=== PATIENT | female | born 1930 | race Caucasian/White ===

== ENCOUNTER 2017-01-27 22:22 | Inpatient (IN) | payer OTHER, MEDICARE ==
[~2017-01-27] VITALS: Ht 154.9 cm; Wt 55.3 kg
[2017-01-27] MEDS ORDERED: SODIUM CHLORIDE 0.9% 1000ML 1,000 ML IV STA (22:32)
[2017-01-27] MEDS: FENTANYL CITRATE INJ 50 MCG/1 ML 2 ML VIAL IV PRN ×2 (22:38→23:16)
--- NOTE | 2017-01-27 22:38 | EMERGENCY ROOM VISIT NOTE ---
History Report prepared by Jayshree: Grant Schumacher Under the Supervision of: Dr. Benedicto Burgos D.O. First contact with patient: 22:01 Chief Complaint: FALL Stated Complaint: FALL History of Present Illness The patient is a 86 year old female who presents to the Emergency Room with complaints of a sudden fall occurring prior to arrival. The patient states that she was putting her dog outside, and she tripped on the dog. She is now complaining of right hip pain. The patient denies any loss of consciousness, abdominal pain, and trauma to the head. The patient states that she is not currently on any blood thinners. Source of History: patient Onset: prior to arrival Position: other (global) Quality: other (fall) Timing: other (sudden) Associated Symptoms: No abdominal pain Note: Associated symptoms: Right hip pain Review of Systems See HPI for pertinent positives & negatives. A total of 10 systems reviewed and were otherwise negative. Past Medical & Surgical Medical Problems: (1) Hip pain, right Social History Marital Status: Housing Status: lives with family Occupation Status: retired Current/Historical Medications Scheduled Acyclovir (Zovirax), 800 MG PO BID Dorzolamide Hcl-Timolol Maleat (Cosopt Oph), 1 DROPS OPL BID Eltrombopag Olamine (Promacta), 25 MG PO DAILY Fluconazole (Diflucan), 200 MG PO DAILY Fluorometholone (Ophth) (Fml Liquifilm), 2 DROPS OPB QAM Fluoxetine (Prozac), 40 MG PO QAM Levofloxacin (Levaquin), 750 MG PO DAILY Allergies Coded Allergies: BEE STING (Verified Allergy, Severe, ANAPHYLAXIS, 01/27/17) Physical Exam Vital Signs Date Time Temp Pulse Resp B/P (MAP) Pulse Ox O2 Delivery O2 Flow Rate FiO2 01/28/17 00:16 71 16 140/85 94 Room Air 01/27/17 23:44 68 16 155/89 94 Room Air 01/27/17 22:58 69 01/27/17 22:33 36.6 67 16 169/97 95 Room Air Physical Exam GENERAL: Patient is awake, alert, and very anxious and uncomfortable. Appears to be in significant pain. EYES: The conjunctivae are clear. The pupils are round and reactive. EARS, NOSE, MOUTH AND THROAT: The nose is without any evidence of any deformity. Mucous membranes are moist tongue is midline NECK: The neck is nontender and supple. RESPIRATORY: Normal respiratory effort is noted there is no evidence of wheezing rhonchi or rales CARDIOVASCULAR: Regular rate and rhythm noted there no murmurs rubs or gallops normal S1 normal S2 GASTROINTESTINAL: The abdomen is soft. Bowel sounds are present in all quadrants. Abdomen is nontender MUSCULOSKELETAL/EXTREMITIES: Right lower extremity was shortened with only minimal internal rotation noted. SKIN: Pedal edema bilaterally. There is no obvious evidence of any rash. There are no petechiae, pallor or cyanosis noted. NEUROLOGIC: Patient is awake alert and oriented x3 Medical Decision & Procedures ER Provider Diagnostic Interpretation: X-ray results as stated below per interpretation by me: Hip/Pelvis X-ray: Acute subcapital hip fracture on the right Chest X-ray: No acute disease. No definite infiltrate. No free air. Laboratory Results Test 01/27/17 22:56 01/27/17 23:11 Platelet Estimate DECREASED Prothrombin Time 10.0 SECONDS (9.0-12.0) Prothromb Time International Ratio 0.9 (0.9-1.1) Activated Partial Thromboplast Time 27.9 SECONDS (21.0-31.0) Partial Thromboplastin Ratio 1.1 Urine Color YELLOW Urine Appearance CLEAR (CLEAR) Urine pH 5.5 (4.5-7.5) Urine Specific [place] 1.019 (1.000-1.030) Urine Protein 1+ (NEG) Urine Glucose (UA) NEG (NEG) Urine Ketones TRACE (NEG) Urine Occult Blood NEG (NEG) Urine Nitrite NEG (NEG) Urine Bilirubin NEG (NEG) Urine Urobilinogen NEG (NEG) Urine Leukocyte Esterase NEG (NEG) Urine WBC (Auto) 1-5 /hpf (0-5) Urine RBC (Auto) 0-4 /hpf (0-4) Urine Hyaline Casts (Auto) 1-5 /lpf (0-5) Urine Epithelial Cells (Auto) 5-10 /lpf (0-5) Urine Bacteria (Auto) NEG (NEG) Laboratory results per my review. Medications Administered Medications (Trade) Dose Ordered Sig/Shantel Route Start Time Stop Time Status Last Admin Dose Admin Sodium Chloride 1,000 ml @ 125 mls/hr Q8H STAT IV 01/27/17 22:32 01/28/17 01:55 DC 01/27/17 23:47 125 MLS/HR Fentanyl Citrate (Fentanyl Inj) 50 mcg Q15M PRN IV 01/27/17 22:45 01/28/17 01:55 DC 01/27/17 23:16 50 MCG Hydromorphone HCl (Dilaudid Inj) 0.5 mg NOW STAT IV 01/27/17 23:55 01/27/17 23:56 DC 01/28/17 00:15 0.5 MG Dextrose/Sodium Chloride 1,000 ml @ 100 mls/hr Q10H IV 01/28/17 00:31 02/27/17 00:30 01/28/17 11:36 100 MLS/HR ECG Indication: other (fall ) Rate (beats per minute): 66 Rhythm: normal sinus Findings: Q waves (Inferior), no ectopy Comparison ECG Date: no prior available ED Course 2228: The patient was evaluated in room A2. A complete history and physical examination were performed. 2232: NSS 1,000 ml @ 125 mls/hr IV 2245: Fentanyl Inj 50mcg IV 2345: I discussed the patient's case with Dr. Royal. The patient will be evaluated for further management. 2355: Dilaudid Inj 0.5mg IV 0033: I discussed the patient's case with Dr. García, and he will evaluate the patient in the morning, and the patient should be NPO Medical Decision Differential diagnosis: Etiologies such as fracture, dislocation, neurovascular compromise, compartment syndrome, soft tissue injury, as well as others were entertained. Nursing notes reviewed. Additional history is obtained from the patient's daughter. The patient is an 86-year-old female who had a fall onto her right side. She suffered an isolated right hip fracture. The patient was treated with IV pain medication in the emergency department. She was reevaluated multiple times. The patient was feeling much better on subsequent reevaluation. I discussed the patient's laboratory and radiographic studies with her. I also discussed her case with the on-call [facility] hospitalist. They've agreed to evaluate the patient in the emergency department for further management and disposition. I also discussed his case with the on-call orthopedic physician and made him aware of the consult as well as the patient's fracture. Medication Reconcilliation Current Medication List: was personally reviewed by me Blood Pressure Screening Patient's blood pressure: Elevated blood pressure Blood pressure disposition: Elevated BP felt to be situational Consults Time Called: 2339 Consulting Physician: Dr. Royal Returned Call: 2344 I discussed the patient's case with Dr. Royal. The patient will be evaluated for further management. Additional Consults: Time Called: 19 Consulted Physician: Dr. García, Orthopedics Returned Call: 32 Additional Comments: I discussed the patient's case with Dr. García, and he will evaluate the patient in the morning, and the patient should be NPO Impression Primary Impression: Fall Additional Impression: Subcapital fracture of right hip Scribe Attestation The scribe's documentation has been prepared under my direction and personally reviewed by me in its entirety. I confirm that the note above accurately reflects all work, treatment, procedures, and medical decision making performed by me. Departure Information Dispostion Being Evaluated By Hospitalist Patient Instructions My [facility] Problem Qualifiers Primary Impression: Fall Encounter type: initial encounter Qualified Codes: W19.XXXA - Unspecified fall, initial encounter Additional Impression: Subcapital fracture of right hip Encounter type: initial encounter Fracture type: closed Qualified Codes: S72.011A - Unspecified intracapsular fracture of right femur, initial encounter for closed fracture
[2017-01-27] MEDS ORDERED: FLUO40CA8 PO (23:07)
[2017-01-27] MEDS ORDERED: LEVO1TAB35 PO (23:07)
[2017-01-27] MEDS ORDERED: DORZ1SOL6 OPL (23:07)
[2017-01-27] MEDS ORDERED: FLUO0.1S2 OPB (23:07)
[2017-01-27] MEDS ORDERED: ACYC-251 PO (23:07)
[2017-01-27] MEDS ORDERED: FLUC200T4 PO (23:07)
[2017-01-27] MEDS ORDERED: ELTR12.58 PO (23:07)
[2017-01-27 23:24] LABS: INR 0.9 (0.9-1.1); PARTIAL THROMBOPLASTIN RATIO 1.1
[2017-01-27 23:26] LABS: CALCIUM 8.3 mg/dl (8.5-10.1); CREATININE 0.94 mg/dl (0.60-1.20); POTASSIUM 4.6 mmol/L (3.5-5.1)
[2017-01-27 23:27] LABS: URINE APPEARANCE CLEAR (CLEAR); URINE BILIRUBIN NEG (NEG); URINE COLOR YELLOW; URINE NITRITE NEG (NEG); URINE PH 5.5 (4.5-7.5); URINE SPECIFIC GRAVITY 1.019 (1.000-1.030); UROBILINOGEN NEG (NEG); ZZURINE CULT IF INDIC CATH NO
[2017-01-27 23:34] LABS: MANUAL MICROSCOPIC REQUIRED? NO; REVIEW REQ? NO
[2017-01-27] MEDS ORDERED: HYDROmorphone INJ 0.5 MG/0.5 ML SYR IV STA (23:55)
[2017-01-27 23:56] LABS: BASO % 0.2 %; BASO ABS # 0.01 K/uL (0-0.2); COMPLETE YES; EOS % 2.4 %; HEMATOCRIT 35.2 % (37-47); IG% 0.8 %; LYMPH % 18.6 %; LYMPH ABS # 0.99 K/uL (1.2-3.4); MEAN CELL VOLUME 110.3 fL (80-100); MEAN CORPUSCULAR HEMOGLOBIN 37.6 pg (25-34); MEAN CORPUSCULAR HGB CONC 34.1 g/dl (32-36); MEAN PLATELET VOLUME 9.3 fL (7.4-10.4); MONO % 12.4 %; NEUT % 65.6 %; PLATELET COUNT 61 K/uL (130-400); PLT ESTIMATE DECREASED; RED BLOOD COUNT 3.19 M/uL (4.2-5.4); WHITE BLOOD COUNT 5.31 K/uL (4.8-10.8)
[2017-01-28] MEDS ORDERED: NALOXONE HCL 0.4 MG/1 ML VIAL/CARP IV PRN (00:45)
[2017-01-28] MEDS ORDERED: POLYETHYLENE (MIRALAX) 17 GM PACK PO PRN (00:45)
[2017-01-28] MEDS ORDERED: MAGNESIUM HYDROXIDE SUSP 30 ML UDC PO PRN (00:45)
[2017-01-28] MEDS ORDERED: SOD PHOSPHATE/SOD BIPHOSPHATE ENEMA 132 ML BTL PR PRN (00:45)
[2017-01-28] MEDS ORDERED: BISACODYL 10 MG SUPP PR PRN (00:45)
[2017-01-28] MEDS ORDERED: ACETAMINOPHEN 325 MG TAB PO PRN (00:45)
[2017-01-28] MEDS ORDERED: HYDROCODONE/ACETAMOPHEN 5/325MG TAB PO PRN (00:45)
[2017-01-28] MEDS ORDERED: ONDANSETRON INJ 2 MG/ML 2 ML VIAL IV PRN (00:45)
--- NOTE | 2017-01-28 00:47 | History and Physical ---
History & Physical Date & Time of Service: Jan 28, 2017 at 00:47 Chief Complaint: FALL Primary Care Physician: Corby Walter M.D. 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 Patient states she was chasing her dog off the porch while she tripped and fell on her right side. Denies any head trauma, LOC, dizziness, change in vision. Complains of right hip pain which is spasmodic, intermittent, 5/10 intensity, non radiating. Denies any fever, chills, chest pain, SOB, abd pain, dysuria but feels nauseous , weakness, numbness. Offers no other relevant history. 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 and chronic diarrhea Past Surgical History: Mastectomy Corneal Transplant Family History Reviewed, not relevant Social History Smoking Status: Never Smoker Alcohol Use: none Drug Use: none Allergies Coded Allergies: BEE STING (Verified Allergy, Severe, ANAPHYLAXIS, 01/27/17) Home Medications Scheduled Acyclovir (Zovirax), 800 MG PO BID Dorzolamide Hcl-Timolol Maleat (Cosopt Oph), 1 DROPS OPL BID Eltrombopag Olamine (Promacta), 25 MG PO DAILY Fluconazole (Diflucan), 200 MG PO DAILY Fluorometholone (Ophth) (Fml Liquifilm), 2 DROPS OPB QAM Fluoxetine (Prozac), 40 MG PO QAM Levofloxacin (Levaquin), 750 MG PO DAILY Review of Systems See HPI for pertinent positives & negatives. A total of 10 systems reviewed and were otherwise negative. Physical Exam Vital Signs Date Time Temp Pulse Resp B/P (MAP) Pulse Ox O2 Delivery O2 Flow Rate FiO2 01/28/17 00:16 71 16 140/85 94 Room Air 01/27/17 23:44 68 16 155/89 94 Room Air 01/27/17 22:58 69 01/27/17 22:33 36.6 67 16 169/97 95 Room Air General Appearance: + mild distress (secondary to pain), + thin Head: normocephalic, atraumatic Eyes: normal inspection, PERRL, EOMI, sclerae normal ENT: normal ENT inspection, hearing grossly normal Neck: supple, no JVD, trachea midline Respiratory/Chest: chest non-tender, lungs clear, normal breath sounds, no respiratory distress, no accessory muscle use Cardiovascular: regular rate, rhythm, no edema, no murmur Abdomen/GI: normal bowel sounds, non tender, soft Back: normal inspection Extremities/Musculoskelatal: normal inspection, no pedal edema Neurologic/Psych: communications writer II-XII nml as tested, no motor/sensory deficits, alert, normal mood/affect, oriented x 3 Skin: warm/dry, + pertinent finding (Chronic Echymotic changes on B/L Upper and lower extremities) Diagnostics Laboratory Results Results Past 24 Hours Test 01/27/17 22:56 01/27/17 23:11 Range/Units White Blood Count 5.31 4.8-10.8 K/uL Red Blood Count 3.19 4.2-5.4 M/uL Hemoglobin 12.0 12.0-16.0 g/dL Hematocrit 35.2 37-47 % Mean Corpuscular Volume 110.3 80-100 fL Mean Corpuscular Hemoglobin 37.6 25-34 pg Mean Corpuscular Hemoglobin Concent 34.1 32-36 g/dl Platelet Count 61 130-400 K/uL Mean Platelet Volume 9.3 7.4-10.4 fL Neutrophils (%) (Auto) 65.6 % Lymphocytes (%) (Auto) 18.6 % Monocytes (%) (Auto) 12.4 % Eosinophils (%) (Auto) 2.4 % Basophils (%) (Auto) 0.2 % Neutrophils # (Auto) 3.48 1.4-6.5 K/uL Lymphocytes # (Auto) 0.99 1.2-3.4 K/uL Monocytes # (Auto) 0.66 0.11-0.59 K/uL Eosinophils # (Auto) 0.13 0-0.5 K/uL Basophils # (Auto) 0.01 0-0.2 K/uL RDW Standard Deviation 53.6 36.4-46.3 fL RDW Coefficient of Variation 13.4 11.5-14.5 % Immature Granulocyte % (Auto) 0.8 % Immature Granulocyte # (Auto) 0.04 0.00-0.02 K/uL Platelet Estimate DECREASED Macrocytosis PRESENT Prothrombin Time 10.0 9.0-12.0 SECONDS Prothromb Time International Ratio 0.9 0.9-1.1 Activated Partial Thromboplast Time 27.9 21.0-31.0 SECONDS Partial Thromboplastin Ratio 1.1 Sodium Level 140 136-145 mmol/L Potassium Level 4.6 3.5-5.1 mmol/L Chloride Level 109 98-107 mmol/L Carbon Dioxide Level 23 21-32 mmol/L Anion Gap 8.0 3-11 mmol/L Blood Urea Nitrogen 14 7-18 mg/dl Creatinine 0.94 0.60-1.20 mg/dl Est Creatinine Clear Calc Drug Dose 33.6 ml/min Estimated GFR () 64.6 Estimated GFR (Non- 55.7 BUN/Creatinine Ratio 15.0 10-20 Random Glucose 123 70-99 mg/dl Calcium Level 8.3 8.5-10.1 mg/dl Urine Color YELLOW Urine Appearance CLEAR CLEAR Urine pH 5.5 4.5-7.5 Urine Specific [place] 1.019 1.000-1.030 Urine Protein 1+ NEG Urine Glucose (UA) NEG NEG Urine Ketones TRACE NEG Urine Occult Blood NEG NEG Urine Nitrite NEG NEG Urine Bilirubin NEG NEG Urine Urobilinogen NEG NEG Urine Leukocyte Esterase NEG NEG Urine WBC (Auto) 1-5 0-5 /hpf Urine RBC (Auto) 0-4 0-4 /hpf Urine Hyaline Casts (Auto) 1-5 0-5 /lpf Urine Epithelial Cells (Auto) 5-10 0-5 /lpf Urine Bacteria (Auto) NEG NEG Diagnostic Radiology Hip X ray: suggestive of Right hip fracture. Official read is pending CXR: No acute process Official read is pending EKG EKG: NSR, QTC:[id number] Impression Assessment and Plan Right Hip Fracture: S/P mechanical fall Pain control IV fluids NPO for now Orthopedics consulted SCDs for DVT prophylaxis given MDS, thrombocytopenia Discussed with patient/Daughter (POA) about risks of bleeding and clot formation Myelodysplastic Syndrome: Chronic Thrombocytopenia: Follows with in [facility] having blood transfusion reactions previously (Needs premedicated in case of need for transfusions) States no issues with platelet transfusions Type and Cross Continue Promacta, Chronic suppressive therapy meds:Acyclovir, Levaquin, Diflucan Currently no bleeding issues CKD III: Cr at baseline monitor Glaucoma: H/O Corneal transplant Continue home meds H/O Breast cancer S/P mastectomy, Stable HTN: Stable Currently not on any meds at home DVT Px: SCDs: Re: MDS, thrombocytopenia Code Status: Full Code. Discussed with patient/POA:daughter VTE Prophylaxis VTE Risk Assessment Done? Y/N: Yes Risk Level: Moderate
[2017-01-28 01:40] VITALS: BP 172/81; PULSE 71; TEMP 36.9; O2SAT 97
[2017-01-28 02:09] VITALS: Ht 154.9 cm; Wt 55.3 kg
[2017-01-28] MEDS: D5W AND NSS 1,000 ML IV SCH ×3 (02:12→20:55)
[2017-01-28] MEDS ORDERED: CEFAZOLIN 2000 MG/60 ML D5W 60 ML IV SCH (06:00)
[2017-01-28] MEDS: HYDROmorphone INJ 0.5 MG/0.5 ML SYR IV PRN ×5 (07:08→21:43)
--- NOTE | 2017-01-28 07:15 | DIAGNOSTIC IMAGING REPORT ---
SINGLE VIEW CHEST CLINICAL HISTORY: Fall. Hip fracture. FINDINGS: An AP, portable, supine chest radiograph is obtained. No prior studies are available for comparison at the time of dictation. The examination is degraded by portable technique and patient rotation. The heart is enlarged and there is atherosclerotic calcification of the thoracic aorta. The pulmonary vasculature is noncongested. Nonspecific interstitial thickening is identified. No airspace consolidation, large pleural effusion, or pneumothorax is seen. The skeletal structures are osteopenic. The bony thorax is grossly intact. IMPRESSION: Cardiomegaly with no acute cardiopulmonary abnormality. Electronically signed by: Benjamín Pitt M.D. 01/28/2017 7:14 AM Dictated Date/Time: 01/28/2017 7:13 AM
--- NOTE | 2017-01-28 07:21 | DIAGNOSTIC IMAGING REPORT ---
R PELVIS/UNILATERAL HIP 2-3VIEWS CLINICAL HISTORY: fall COMPARISON STUDY: None. FINDINGS: There is a right femoral neck fracture demonstrate mild superior displacement. The femoral head remains within the acetabulum. The visualized pelvic bones are intact. No fracture or dislocation within the left hip. The bones are osteopenic. IMPRESSION: Mildly displaced right femoral neck fracture. Electronically signed by: Khanh Emmanuel M.D. 01/28/2017 7:20 AM Dictated Date/Time: 01/28/2017 7:19 AM
[2017-01-28 07:26] LABS: MEAN CELL VOLUME 112.2 fL (80-100); MEAN CORPUSCULAR HEMOGLOBIN 37.6 pg (25-34); MEAN CORPUSCULAR HGB CONC 33.5 g/dl (32-36); RED BLOOD COUNT 3.03 M/uL (4.2-5.4)
[2017-01-28 07:29] LABS: MEAN PLATELET VOLUME 9.1 fL (7.4-10.4); PLATELET COUNT 58 K/uL (130-400)
[2017-01-28 07:35] VITALS: BP 123/81; PULSE 74; TEMP 37.1; O2SAT 97
[2017-01-28] MEDS ORDERED: PNEUMOCOCCAL ADMINISTRATION CHARGE ONE (08:00)
[2017-01-28] MEDS ORDERED: PNEUMOCOCCAL POLYSACCHARIDES 25 MCG/0.5 ML VIAL/SYR IM. ONE (08:00)
[2017-01-28] MEDS ORDERED: INFLUENZA VACCINE HIGH DOSE 65+ 0.5 ML SYR IM. ONE (08:00)
[2017-01-28] MEDS ORDERED: INFLUENZA ADMINISTRATION CHARGE ONE (08:00)
[2017-01-28 08:02] LABS: BUN/CREATININE RATIO 18.3 (10-20); CREATININE 0.81 mg/dl (0.60-1.20); POTASSIUM 4.4 mmol/L (3.5-5.1)
[2017-01-28 08:11] LABS: COMPLETE YES; EOS % 0.6 %; IG% 0.2 %; LYMPH % 15.9 %; LYMPH ABS # 0.78 K/uL (1.2-3.4); MONO % 14.7 %; NEUT % 68.6 %; TEAR DROP CELLS 1+
--- NOTE | 2017-01-28 08:11 | CONSULTATION REPORT ---
DATE OF CONSULTATION: 01/28/2017 REASON FOR CONSULT: Right hip fracture. HISTORY OF PRESENT ILLNESS: The patient is an 86-year-old white female who states that she was attending to her 2 dogs on her front porch. She was trying to get the one dog go down off the porch into the yard whenever she got caught up in the dog's leash and ended up causing her to lose her balance and fall. She fell onto her right side and had immediate hip pain, groin pain and was unable to ambulate. She was brought to [facility] where she was seen by the staff. X-rays were taken in the Emergency Room and it was found that she had a displaced right femoral neck fracture. She was admitted by the medical service. We have been asked to see her for this fracture. The patient states that she lives alone and ambulates throughout the household regularly and does her own yard work still. She does on occasion go out with some of her friends; however, she states that she does not do this often and because if she does walk long distances, she gets too tired. She denies any hip pain in the right hip prior to the fall. PAST MEDICAL AND SURGICAL HISTORY: Myelodysplastic syndrome, chronic thrombocytopenia, CKD stage III, glaucoma, history of breast carcinoma with status post mastectomy, hypertension, history of pyoderma gangrenosum secondary to infected breast implant, chronic diarrhea, and history of corneal transplants.. FAMILY HISTORY: Noncontributory. SOCIAL HISTORY: The patient is nonsmoker, does not drink alcohol and lives by herself. MEDICATIONS: Acyclovir 800 mg p.o. b.i.d., Cosopt ophthalmic 1 drop OPL b.i.d., Promacta 25 mg p.o. daily, Diflucan 200 mg p.o. daily, fluorometholone 2 drops OPB q.a.m., Prozac 40 mg p.o. q.a.m. and Levaquin 750 mg p.o. daily. ALLERGIES: BEE STINGS. REVIEW OF SYSTEMS: As per admitting history and physical. PHYSICAL EXAMINATION: GENERAL: The patient is an 86-year-old white female who appears her stated age. She is awake and alert and oriented to person and place. She is in no distress, pleasant and cooperative. EXTREMITIES: On examination of her right lower extremity, it is shortened and externally rotated compared to the left. No attempts were made to move the right hip due to fracture. Her right knee is nontender and she has no pain in the right ankle or toes. She has good range of motion of her right ankle and toes at this time. Knee range of motion is limited due to hip fracture pain. Left lower extremity essentially benign at this time and has good range of motion of the left hip, knee and ankle. Upper extremities are unaffected and she has good range of motion of the left and right upper extremity. She is nontender at the shoulders, elbows and wrists and has good sensation. Ice Guard Tester strength is equal. She denies neck pain on palpation and has good range of motion of her neck and currently is denying any thoracic or low back pain. There are no gross motor or sensory deficits at this time other than hip due to her right hip fracture with her range of motion. ASSESSMENT: Displaced right femoral neck fracture. PLAN: The patient will likely need either bipolar hemiarthroplasty or total hip arthroplasty as designated per [facility] physician. We will discuss the case with medicine service, making sure she is cleared for surgery, but otherwise we will try and get her hip taken care of today. (Hematology consult pending. Discussed case with Blood Bank. They have 2 units of platelets in house but the expiration date is for late today. Hoping to have more units available soon.) CORNELIUS
[2017-01-28] MEDS: FLUOXETINE HCL 20 MG CAP PO SCH ×2 (09:00→09:12)
[2017-01-28] MEDS: LEVOFLOXACIN 750 MG TAB PO SCH ×2 (09:00→09:12)
[2017-01-28] MEDS: ACYCLOVIR 400 MG TAB PO SCH ×3 (09:12→20:56)
[2017-01-28] MEDS: FLUCONAZOLE 100 MG TAB PO SCH ×2 (09:12→11:30)
[2017-01-28] MEDS: DORZOLAMIDE/TIMOLOL 22.3/6.8MG/ML 10 ML BTL OPL SCH ×2 (09:15→20:55)
[2017-01-28 15:00] VITALS: BP 136/84; PULSE 73; TEMP 36.8; O2SAT 92
[2017-01-28 16:00] VITALS: O2SAT 94
--- NOTE | 2017-01-28 16:14 | DIAGNOSTIC IMAGING REPORT ---
R FEMUR 2 VIEWS ROUTINE CLINICAL HISTORY: Fall. Hip fracture. Preoperative planning. COMPARISON: Pelvis and right hip radiographs December 28, 2016. FINDINGS: There is an acute moderately displaced right femoral neck fracture. Fracture displacement has increased since exam of January 27, 2017. No additional right femoral fractures are present. There is no right knee joint effusion. No proximal right tibia or fibular fracture is identified. IMPRESSION: 1. Acute moderately displaced right femoral neck fracture. Fracture displacement has increased since exam of January 27, 2017. 2. No additional right femoral fractures. Electronically signed by: Kentrell Schuler M.D. 01/28/2017 4:13 PM Dictated Date/Time: 01/28/2017 4:10 PM
--- NOTE | 2017-01-28 18:01 | Progress Note ---
Medicine Progress Note Date & Time of Visit: Jan 28, 2017 at 18:01. Subjective Patient has no complaints other than being hungry and having occasional pain in her hip; overall she is ok, joking and hoping for the best. No overnight events noted. Has family at the bedside. Objective Last 8 Hrs Date Time Temp Pulse Resp B/P (MAP) Pulse Ox O2 Delivery O2 Flow Rate FiO2 01/28/17 15:38 Nasal Cannula 2.0 01/28/17 15:00 36.8 73 16 136/84 (101) 92 Nasal Cannula 2.0 Physical Exam: GENERAL: Patient is in no acute distress. HEENT: No acute trauma, normocephalic atraumatic, mucous membranes moist, no nasal congestion, no scleral icterus. NECK: No stridor, trachea is midline. LUNGS: Clear to auscultation bilaterally, no wheeze, no rhonchi, breath sounds equal. HEART: Without murmurs gallops or rubs, regular rate and rhythm. ABDOMEN: Soft, nontender, bowel sounds positive EXTREMITIES: No cyanosis or edema; bilateral UE with purplish discoloration, per patient is unchanged NEUROLOGIC: Oriented x 3, no acute motor or sensory deficits, no focal weakness. SKIN: No rash, no jaundice, no diaphoresis. Laboratory Results: Last 24 Hours Test 01/27/17 22:56 01/27/17 23:11 01/28/17 06:48 White Blood Count 5.31 K/uL 4.90 K/uL Red Blood Count 3.19 M/uL 3.03 M/uL Hemoglobin 12.0 g/dL 11.4 g/dL Hematocrit 35.2 % 34.0 % Mean Corpuscular Volume 110.3 fL 112.2 fL Mean Corpuscular Hemoglobin 37.6 pg 37.6 pg Mean Corpuscular Hemoglobin Concent 34.1 g/dl 33.5 g/dl Platelet Count 61 K/uL 58 K/uL Mean Platelet Volume 9.3 fL 9.1 fL Neutrophils (%) (Auto) 65.6 % 68.6 % Lymphocytes (%) (Auto) 18.6 % 15.9 % Monocytes (%) (Auto) 12.4 % 14.7 % Eosinophils (%) (Auto) 2.4 % 0.6 % Basophils (%) (Auto) 0.2 % 0.0 % Neutrophils # (Auto) 3.48 K/uL 3.36 K/uL Lymphocytes # (Auto) 0.99 K/uL 0.78 K/uL Monocytes # (Auto) 0.66 K/uL 0.72 K/uL Eosinophils # (Auto) 0.13 K/uL 0.03 K/uL Basophils # (Auto) 0.01 K/uL 0.00 K/uL RDW Standard Deviation 53.6 fL 55.0 fL RDW Coefficient of Variation 13.4 % 13.6 % Immature Granulocyte % (Auto) 0.8 % 0.2 % Immature Granulocyte # (Auto) 0.04 K/uL 0.01 K/uL Platelet Estimate DECREASED Macrocytosis PRESENT PRESENT Prothrombin Time 10.0 SECONDS Prothromb Time International Ratio 0.9 Activated Partial Thromboplast Time 27.9 SECONDS Partial Thromboplastin Ratio 1.1 Sodium Level 140 mmol/L 140 mmol/L Potassium Level 4.6 mmol/L 4.4 mmol/L Chloride Level 109 mmol/L 110 mmol/L Carbon Dioxide Level 23 mmol/L 22 mmol/L Anion Gap 8.0 mmol/L 8.0 mmol/L Blood Urea Nitrogen 14 mg/dl 15 mg/dl Creatinine 0.94 mg/dl 0.81 mg/dl Est Creatinine Clear Calc Drug Dose 33.6 ml/min 39.0 ml/min Estimated GFR () 64.6 77.3 Estimated GFR (Non- 55.7 66.7 BUN/Creatinine Ratio 15.0 18.3 Random Glucose 123 mg/dl 131 mg/dl Calcium Level 8.3 mg/dl 8.0 mg/dl Urine Color YELLOW Urine Appearance CLEAR Urine pH 5.5 Urine Specific [place] 1.019 Urine Protein 1+ Urine Glucose (UA) NEG Urine Ketones TRACE Urine Occult Blood NEG Urine Nitrite NEG Urine Bilirubin NEG Urine Urobilinogen NEG Urine Leukocyte Esterase NEG Urine WBC (Auto) 1-5 /hpf Urine RBC (Auto) 0-4 /hpf Urine Hyaline Casts (Auto) 1-5 /lpf Urine Epithelial Cells (Auto) 5-10 /lpf Urine Bacteria (Auto) NEG Tear Drop Cells 1+ Chemistry Specimen Hemolysis Date/Time Source Procedure Growth Status 01/28/17 01:40 Nasal MRSA DNA Surveillance Screen - Final Specimen Negative for MRSA by DNA Probe Complete Assessment & Plan RIGHT HIP FRACTURE: -following a mechanical fall -pain control -IV fluids -NPO after midnight -Orthopedics consulted, appreciate recs, planning for surgery tomorrow afternoon -SCDs for DVT prophylaxis given MDS, thrombocytopenia -prior attending spoke with patient/Daughter (POA) about risks of bleeding and clot formation -patient can proceed to surgery as planned with no additional workup; will transfuse platelets on day of surgery MYELODYSPLASTIC SYNDROME: -with Chronic Thrombocytopenia: platelets had been relatively stable in 50,000 range per patients Hem/Onc -follows with in [place] -has a history of blood transfusion reactions previously (Needs premedicated in case of need for transfusions) -no issues with platelet transfusions previously -Type and Cross completed -continue Promacta, Chronic suppressive therapy meds:Acyclovir, Levaquin, Diflucan -no bleeding currently -Hem/Onc consulted: advise 1 unit platelets transfused in the AM on day of surgery and recheck; please see consultation for DVT prophylaxis recommendations ; appreciate all the input from Hem/Onc CKD STAGE III: -Cr at baseline -monitor GLAUCOMA: -prior Corneal transplants -continue home meds Hx of BREAST CANCER: -S/P mastectomy -Stable HTN: Stable Currently not on any meds at home Current Inpatient Medications: Current Inpatient Medications Medications (Trade) Dose Ordered Sig/Shantel Route Start Time Stop Time Status Last Admin Dose Admin Dextrose/Sodium Chloride 1,000 ml @ 100 mls/hr Q10H IV 01/28/17 00:31 02/27/17 00:30 01/28/17 11:36 100 MLS/HR Ondansetron HCl (Zofran Inj) 4 mg Q6H PRN IV 01/28/17 00:45 02/27/17 00:44 Acetaminophen (Tylenol Tab) 650 mg Q6H PRN PO 01/28/17 00:45 02/27/17 00:44 Naloxone HCl (Narcan Inj) 0.1 mg PRN PRN IV 01/28/17 00:45 02/27/17 00:44 Senna/Docusate Sodium (Senokot S Tab) 2 tab HS PO 01/28/17 21:00 02/27/17 20:59 Polyethylene (Miralax Powder Packet) 17 gm DAILY PRN PO 01/28/17 00:45 02/27/17 00:44 Magnesium Hydroxide (Milk Of Magnesia Susp) 30 ml DAILY PRN PO 01/28/17 00:45 02/27/17 00:44 Bisacodyl (Dulcolax Supp) 10 mg DAILY PRN [place] 01/28/17 00:45 02/27/17 00:44 Sodium Biphosphate/ Sodium Phosphate (Fleet Enema) 132 ml PRN PRN [place] 01/28/17 00:45 Cefazolin Sodium 60 ml @ 120 mls/hr PREOP IV 01/28/17 06:00 01/29/17 05:59 Acyclovir (Zovirax Tab) 800 mg BID PO 01/28/17 09:00 02/27/17 08:59 01/28/17 11:30 800 MG Dorzolamide/ Timolol (Cosopt Op Soln) 1 drops BID OPL 01/28/17 09:00 02/27/17 08:59 01/28/17 09:15 1 DROPS Fluconazole (Diflucan Tab) 200 mg DAILY PO 01/28/17 09:00 02/27/17 08:59 01/28/17 11:30 200 MG Fluoxetine HCl (Prozac Cap) 40 mg QAM PO 01/28/17 09:00 02/27/17 08:59 01/28/17 09:00 40 MG Levofloxacin (Levaquin Tab) 750 mg DAILY PO 01/28/17 09:00 02/27/17 08:59 01/28/17 09:00 750 MG Acetaminophen/ Hydrocodone Bitart ([place] 5/325 Tab) 1 tab Q6H PRN PO 01/28/17 00:45 02/11/17 00:44 01/28/17 10:12 1 TAB Non-Formulary Medication (Non-Formulary Patient'S Own Med) 1 ea DAILY PO 01/29/17 09:00 02/28/17 08:59 Hydromorphone HCl (Dilaudid Inj) 0.5 mg Q3HWA PRN IV 01/28/17 17:45 02/11/17 00:44
--- NOTE | 2017-01-28 18:45 | Anesthesiology Progress Note ---
Anesthesia Progress Note Date of Service Jan 28, 2017. Progress Notes Ms. Giraldo is scheduled for bipolar hip, right tomorrow with Dr. Arthur. NKDA. PSH significant for mastectomy and corneal transplant. 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 PMH significant for HTN and myelodysplastic syndrome with chronic thrombocytopenia (platelets have been as low as 2 before). Currently platelet count is 58. Heme has seen patient and awaiting their full note although patient stated she is to receive platelet transfusion tomorrow prior to OR. PMH also significant for CKD. She is a never smoker and airway exam unremarkable. Consented for general anesthesia given her significant thrombocytopenia. All questions answered.
--- NOTE | 2017-01-28 18:51 | Medical Consult ---
Consultation Date of Consultation: Jan 28, 2017. Attending Physician: Eugenie Subramanian D.O. Reason for Consultation: MDS History of Present Illness 86 year old female with history of MDS, high IPSS, followed by Dr Servin at [facility]. She was treated with vidaza in the past and aranesp and supportive transfusions. Her current treatment is with promacta and her platelet counts have been stable in the low 60s She is admitted with a displaced right femoral fracture. She states that she was attending to her dogs and her leg got caught in the leash of one of her dogs and she lost her balance and fell. She has bruises on her forearms which she states are old. She has bruises on er right thigh and hip area She states that pain is controlled adequately at this time. 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 chronic diarrhea PSH: mastectomy, corneal transplant Medical Problems: (1) Fall Status: Acute (2) Subcapital fracture of right hip Status: Acute Family History noncontributory Social History Smoking Status: Never Smoker Alcohol Use: none Drug Use: none Housing Status: lives alone (but states that her daughter and son live in close proximity) Occupation Status: retired Allergies Coded Allergies: BEE STING (Verified Allergy, Severe, ANAPHYLAXIS, 01/27/17) Home Medications Reviewed Acyclovir, promacta 25mg, diflucan 200mg levaquin prozac, fluorometholone opth dorzolomide-timolol opth Current Inpatient Medications Current Inpatient Medications Medications (Trade) Dose Ordered Sig/Shantel Route Start Time Stop Time Status Last Admin Dose Admin Dextrose/Sodium Chloride 1,000 ml @ 100 mls/hr Q10H IV 01/28/17 00:31 02/27/17 00:30 01/28/17 11:36 100 MLS/HR Ondansetron HCl (Zofran Inj) 4 mg Q6H PRN IV 01/28/17 00:45 02/27/17 00:44 Acetaminophen (Tylenol Tab) 650 mg Q6H PRN PO 01/28/17 00:45 02/27/17 00:44 Naloxone HCl (Narcan Inj) 0.1 mg PRN PRN IV 01/28/17 00:45 02/27/17 00:44 Senna/Docusate Sodium (Senokot S Tab) 2 tab HS PO 01/28/17 21:00 02/27/17 20:59 Polyethylene (Miralax Powder Packet) 17 gm DAILY PRN PO 01/28/17 00:45 02/27/17 00:44 Magnesium Hydroxide (Milk Of Magnesia Susp) 30 ml DAILY PRN PO 01/28/17 00:45 02/27/17 00:44 Bisacodyl (Dulcolax Supp) 10 mg DAILY PRN [place] 01/28/17 00:45 02/27/17 00:44 Sodium Biphosphate/ Sodium Phosphate (Fleet Enema) 132 ml PRN PRN [place] 01/28/17 00:45 Cefazolin Sodium 60 ml @ 120 mls/hr PREOP IV 01/28/17 06:00 01/29/17 05:59 Acyclovir (Zovirax Tab) 800 mg BID PO 01/28/17 09:00 02/27/17 08:59 01/28/17 11:30 800 MG Dorzolamide/ Timolol (Cosopt Op Soln) 1 drops BID OPL 01/28/17 09:00 02/27/17 08:59 01/28/17 09:15 1 DROPS Fluconazole (Diflucan Tab) 200 mg DAILY PO 01/28/17 09:00 02/27/17 08:59 01/28/17 11:30 200 MG Fluoxetine HCl (Prozac Cap) 40 mg QAM PO 01/28/17 09:00 02/27/17 08:59 01/28/17 09:00 40 MG Levofloxacin (Levaquin Tab) 750 mg DAILY PO 01/28/17 09:00 02/27/17 08:59 01/28/17 09:00 750 MG Acetaminophen/ Hydrocodone Bitart ([place] 5/325 Tab) 1 tab Q6H PRN PO 01/28/17 00:45 02/11/17 00:44 10/12/17 10:12 1 TAB Non-Formulary Medication (Non-Formulary Patient'S Own Med) 1 ea DAILY PO 01/29/17 09:00 02/28/17 08:59 Hydromorphone HCl (Dilaudid Inj) 0.5 mg Q3HWA PRN IV 01/28/17 17:45 02/11/17 00:44 Review of Systems Constitutional: No fever, No chills, No sweats, No weight loss, No weakness, No fatigue ENT: No unusual epistaxis, No nasal symptoms, No sore throat Respiratory: No cough, No sputum, No wheezing, No shortness of breath, No dyspnea on exertion, No hemoptysis Cardiovascular: No chest pain, No palpitations Abdomen: + diarrhea (chronic), No pain, No nausea, No vomiting, No GI bleeding Musculoskeletal: + joint pain (right hip fracuture), + problem reported Genitourinary - Female: No dysuria, No urinary frequency, No hematuria Neurologic: No weakness, No numbness/tingling, No vertigo Endocrine: + fatigue (mild) Hematologic / Lymphatic: No swollen lymph nodes, No night sweats Integumentary: + problem reported (bruising), No rash, No itch Physical Exam Date Time Temp Pulse Resp B/P (MAP) Pulse Ox O2 Delivery O2 Flow Rate FiO2 01/28/17 15:38 Nasal Cannula 2.0 01/28/17 15:00 36.8 73 16 136/84 (101) 92 Nasal Cannula 2.0 01/28/17 07:35 37.1 74 16 123/81 (95) 97 Nasal Cannula 1.0 01/28/17 07:08 Room Air 01/28/17 02:15 Nasal Cannula 01/28/17 02:09 Nasal Cannula 1.0 01/28/17 01:40 36.9 71 18 172/81 (111) 97 Nasal Cannula 1.0 01/28/17 01:18 69 16 149/85 100 01/28/17 00:46 68 16 126/81 99 Nasal Cannula 2.0 01/28/17 00:16 71 16 140/85 94 Room Air 01/27/17 23:44 68 16 155/89 94 Room Air 01/27/17 22:58 69 01/27/17 22:33 36.6 67 16 169/97 95 Room Air General Appearance: WD/WN, no apparent distress Head: normocephalic, atraumatic Eyes: sclerae normal ENT: pharynx normal Neck: supple, no adenopathy, no JVD Respiratory/Chest: chest non-tender, lungs clear, normal breath sounds, no respiratory distress, no accessory muscle use Cardiovascular: regular rate, rhythm, no murmur Abdomen/GI: normal bowel sounds, non tender, soft, + pertinent finding ( nondistended) Extremities/Musculoskelatal: + pertinent finding (+SCDs, +ecchymoses on right thigh and posterior hip) Neurologic/Psych: alert, normal mood/affect, oriented x 3 Skin: warm/dry Laboratory Results Last 24 Hours Test 01/27/17 22:56 01/27/17 23:11 01/28/17 06:48 White Blood Count 5.31 K/uL 4.90 K/uL Red Blood Count 3.19 M/uL 3.03 M/uL Hemoglobin 12.0 g/dL 11.4 g/dL Hematocrit 35.2 % 34.0 % Mean Corpuscular Volume 110.3 fL 112.2 fL Mean Corpuscular Hemoglobin 37.6 pg 37.6 pg Mean Corpuscular Hemoglobin Concent 34.1 g/dl 33.5 g/dl Platelet Count 61 K/uL 58 K/uL Mean Platelet Volume 9.3 fL 9.1 fL Neutrophils (%) (Auto) 65.6 % 68.6 % Lymphocytes (%) (Auto) 18.6 % 15.9 % Monocytes (%) (Auto) 12.4 % 14.7 % Eosinophils (%) (Auto) 2.4 % 0.6 % Basophils (%) (Auto) 0.2 % 0.0 % Neutrophils # (Auto) 3.48 K/uL 3.36 K/uL Lymphocytes # (Auto) 0.99 K/uL 0.78 K/uL Monocytes # (Auto) 0.66 K/uL 0.72 K/uL Eosinophils # (Auto) 0.13 K/uL 0.03 K/uL Basophils # (Auto) 0.01 K/uL 0.00 K/uL RDW Standard Deviation 53.6 fL 55.0 fL RDW Coefficient of Variation 13.4 % 13.6 % Immature Granulocyte % (Auto) 0.8 % 0.2 % Immature Granulocyte # (Auto) 0.04 K/uL 0.01 K/uL Platelet Estimate DECREASED Macrocytosis PRESENT PRESENT Prothrombin Time 10.0 SECONDS Prothromb Time International Ratio 0.9 Activated Partial Thromboplast Time 27.9 SECONDS Partial Thromboplastin Ratio 1.1 Sodium Level 140 mmol/L 140 mmol/L Potassium Level 4.6 mmol/L 4.4 mmol/L Chloride Level 109 mmol/L 110 mmol/L Carbon Dioxide Level 23 mmol/L 22 mmol/L Anion Gap 8.0 mmol/L 8.0 mmol/L Blood Urea Nitrogen 14 mg/dl 15 mg/dl Creatinine 0.94 mg/dl 0.81 mg/dl Est Creatinine Clear Calc Drug Dose 33.6 ml/min 39.0 ml/min Estimated GFR () 64.6 77.3 Estimated GFR (Non- 55.7 66.7 BUN/Creatinine Ratio 15.0 18.3 Random Glucose 123 mg/dl 131 mg/dl Calcium Level 8.3 mg/dl 8.0 mg/dl Urine Color YELLOW Urine Appearance CLEAR Urine pH 5.5 Urine Specific [place] 1.019 Urine Protein 1+ Urine Glucose (UA) NEG Urine Ketones TRACE Urine Occult Blood NEG Urine Nitrite NEG Urine Bilirubin NEG Urine Urobilinogen NEG Urine Leukocyte Esterase NEG Urine WBC (Auto) 1-5 /hpf Urine RBC (Auto) 0-4 /hpf Urine Hyaline Casts (Auto) 1-5 /lpf Urine Epithelial Cells (Auto) 5-10 /lpf Urine Bacteria (Auto) NEG Tear Drop Cells 1+ Chemistry Specimen Hemolysis Xray pelvis : IMPRESSION: Mildly displaced right femoral neck fracture. CXR: IMPRESSION: Cardiomegaly with no acute cardiopulmonary abnormality Femur xray IMPRESSION: 1. Acute moderately displaced right femoral neck fracture. Fracture displacement has increased since exam of January 27, 2017. 2. No additional right femoral fractures. Assessment & Plan 86 year old female with MDS, chronic thrombocytopenia currently on Promacta admitted with displaced right femoral neck fracture Platelet count 58,000. continue promacta Recommend transfuse her 1 unit of platelets prior to her surgery and recheck the platelet count. If platelet count still not adequate from surgery standpoint she can be transfused a second unit of platelet. Transfuse PRBC and platelets as clinically indicated if bleeding. Monitor CBC post-surgery and when adequate hemostasis has been achieved and safe from surgeon standpoint, she can be started on prophylactic dose lovenox 40mg once daily if her platelet count is stable over 50,000. Monitor for any bleeding. I discussed risk of bleeding and thromboembolism with the patient. I spoke to her nickel plater Dr Servin about the patient and recommendations are as above and he agreed with the above. I also spoke to Dr Subramanian Thank you for allowing us to participate in the care of this patient Call if questions
[2017-01-28] MEDS: DOCUSATE SODIUM/SENNA 50/8.6MG TAB PO SCH (20:56)
[2017-01-28 21:37] VITALS: O2SAT 95
[2017-01-28 23:30] VITALS: BP 112/72; PULSE 71; TEMP 37.3; O2SAT 97
[2017-01-29] VITALS (14 sets, daily range): BP systolic 97–148; BP diastolic 58–80; PULSE 66–82; TEMP 36.4–37; O2SAT 91–98
[2017-01-29] MEDS: HYDROmorphone INJ 0.5 MG/0.5 ML SYR IV PRN ×3 (02:36→09:34)
[2017-01-29] MEDS: D5W AND NSS 1,000 ML IV SCH (05:55)
[2017-01-29] MEDS ORDERED: CEFAZOLIN 2000 MG/60 ML D5W IV SCH (06:00)
[2017-01-29 07:15] LABS: HEMATOCRIT 29.9 % (37-47); MEAN CELL VOLUME 112.8 fL (80-100); MEAN CORPUSCULAR HEMOGLOBIN 38.1 pg (25-34); MEAN CORPUSCULAR HGB CONC 33.8 g/dl (32-36); RED BLOOD COUNT 2.65 M/uL (4.2-5.4); WHITE BLOOD COUNT 5.36 K/uL (4.8-10.8)
[2017-01-29] MEDS ORDERED: BUPIVACAINE 0.5 % 5 MG/1 ML PF 10ML VIAL ONE (07:15)
[2017-01-29 07:22] LABS: MEAN PLATELET VOLUME 8.7 fL (7.4-10.4); PLATELET COUNT 44 K/uL (130-400)
[2017-01-29 07:39] LABS: BASO % 0.2 %; BASO ABS # 0.01 K/uL (0-0.2); COMPLETE YES; EOS % 1.1 %; IG% 0.4 %; LYMPH % 16.4 %; LYMPH ABS # 0.88 K/uL (1.2-3.4); MONO % 12.5 %; NEUT % 69.4 %
[2017-01-29 07:40] LABS: BUN/CREATININE RATIO 16.7 (10-20); CALCIUM 7.9 mg/dl (8.5-10.1); CREATININE 0.72 mg/dl (0.60-1.20)
[2017-01-29] MEDS ORDERED: DiphenhydrAMINE INJ 25 MG in SYRINGE 0 ML IV ONE (08:00)
[2017-01-29] MEDS ORDERED: DiphenhydrAMINE HCL 50 MG/ML VIAL IV SCH ×2 (08:30→20:30)
[2017-01-29] MEDS ORDERED: ACETAMINOPHEN IV 650 MG in EMPTY BAG 0 ML IV SCH (08:30)
[2017-01-29] MEDS ORDERED: PROMACTA 25 MG PO SCH (09:00)
[2017-01-29] MEDS ORDERED: NURSING VERBAL MED ORDER ONE (09:15)
[2017-01-29] MEDS: FLUOROMETHOLONE OPH OP SCH (09:26)
[2017-01-29] MEDS: DORZOLAMIDE/TIMOLOL 22.3/6.8MG/ML 10 ML BTL OPL SCH ×2 (09:26→21:29)
[2017-01-29] MEDS: FLUCONAZOLE 100 MG TAB PO SCH (09:28)
[2017-01-29] MEDS: ACYCLOVIR 400 MG TAB PO SCH ×2 (09:29→21:29)
[2017-01-29] MEDS: FLUOXETINE HCL 20 MG CAP PO SCH (09:29)
[2017-01-29] MEDS: LEVOFLOXACIN 750 MG TAB PO SCH (09:29)
[2017-01-29] MEDS ORDERED: METHYLPREDNISOLONE IV 40 MG in SYRINGE 0 ML IV ONE (12:30)
[2017-01-29] MEDS ORDERED: PANTOprazole INJ 40 MG in SYRINGE 0 ML IV ONE (12:30)
[2017-01-29 12:32] LABS: HEMATOCRIT 28.6 % (37-47); MEAN CELL VOLUME 111.3 fL (80-100); MEAN CORPUSCULAR HEMOGLOBIN 38.9 pg (25-34); RED BLOOD COUNT 2.57 M/uL (4.2-5.4); WHITE BLOOD COUNT 5.84 K/uL (4.8-10.8)
[2017-01-29 12:37] LABS: MEAN PLATELET VOLUME 8.9 fL (7.4-10.4); PLATELET COUNT 65 K/uL (130-400)
[2017-01-29] MEDS ORDERED: MIDAZOLAM HCL 1 MG/ML 2ML VIAL ONE (12:43)
[2017-01-29] MEDS ORDERED: PROPOFOL IV EMULSION 10 MG/ML 20 ML VIAL IV ONE (12:44)
[2017-01-29] MEDS ORDERED: LIDOCAINE HCL 2% 2 ML VIAL (20MG/ML) ONE (12:44)
[2017-01-29] MEDS ORDERED: FENTANYL CITRATE INJ 50 MCG/1 ML 2 ML VIAL ONE (12:44)
[2017-01-29] MEDS ORDERED: ONDANSETRON INJ 2 MG/ML 2 ML VIAL ONE ×2 (12:45→14:52)
[2017-01-29 12:59] LABS: BASO % 0.2 %; BASO ABS # 0.01 K/uL (0-0.2); COMPLETE YES; EOS % 0.9 %; IG% 0.5 %; LYMPH % 13.9 %; LYMPH ABS # 0.81 K/uL (1.2-3.4); MONO % 12.3 %; NEUT % 72.2 %; TOXIC GRANULATION 1+
[2017-01-29 13:10] LABS: CKMB/CK RATIO 2.1 (0-3.0)
--- NOTE | 2017-01-29 13:28 | Progress Note ---
Medicine Progress Note Date & Time of Visit: Jan 29, 2017 at 13:13. Subjective Patient was seen earlier this AM, was doing ok other than having pain in her hip with even minimal movement. She feels the pain medication is adequate. She denies any other symptoms at this time. No overnight events noted. Was able to eat last evening until midnight. No other complaints at this time. Consent was obtained for platelet transfusion Was paged later in the morning that the patient began to have chest pain and pressure that began right after the platelets were transfused. Her symptoms persisted for 30 mins and slowly resolved. No SOB or palpitations. No prior history of such symptoms. Vitals remained stable. Family at the bedside and updated. EKG performed, reviewed, shows normal sinus rhythm with no ST or T wave abnormalities. Labs to check cardiac enzymes and CBC ordered. Objective Last 8 Hrs Date Time Temp Pulse Resp B/P (MAP) Pulse Ox O2 Delivery O2 Flow Rate FiO2 01/29/17 12:32 37.0 72 14 148/75 (99) 98 Nasal Cannula 2.0 01/29/17 11:55 36.4 72 125/75 97 2.0 01/29/17 11:51 36.4 74 16 125/75 96 2.0 01/29/17 11:20 36.9 72 12 104/66 96 2.0 01/29/17 10:49 36.6 72 14 101/63 98 2.0 01/29/17 10:35 36.4 73 12 104/66 95 2.0 01/29/17 10:17 36.9 78 20 129/80 01/29/17 07:25 36.8 78 16 146/79 (101) 92 Nasal Cannula 2.0 01/29/17 07:25 Nasal Cannula 2.0 Physical Exam: GENERAL: Patient is in no acute distress. HEENT: No acute trauma, normocephalic atraumatic, mucous membranes moist, no nasal congestion, no scleral icterus. NECK: No stridor, trachea is midline. LUNGS: Clear to auscultation bilaterally, no wheeze, no rhonchi, breath sounds equal. HEART: Without murmurs gallops or rubs, regular rate and rhythm. ABDOMEN: Soft, nontender, bowel sounds positive EXTREMITIES: No cyanosis or edema; bilateral UE with blue-purplish discoloration , per patient is unchanged from her usual NEUROLOGIC: Oriented x 3, no acute motor or sensory deficits, no focal weakness. SKIN: No rash, no jaundice, no diaphoresis. Exam unchanged when repeated at 11:08 AM Laboratory Results: Last 24 Hours Test 01/29/17 06:40 01/29/17 12:18 01/29/17 13:05 White Blood Count 5.36 K/uL 5.84 K/uL Red Blood Count 2.65 M/uL 2.57 M/uL Hemoglobin 10.1 g/dL 10.0 g/dL Hematocrit 29.9 % 28.6 % Mean Corpuscular Volume 112.8 fL 111.3 fL Mean Corpuscular Hemoglobin 38.1 pg 38.9 pg Mean Corpuscular Hemoglobin Concent 33.8 g/dl 35.0 g/dl Platelet Count 44 K/uL 65 K/uL Mean Platelet Volume 8.7 fL 8.9 fL Neutrophils (%) (Auto) 69.4 % 72.2 % Lymphocytes (%) (Auto) 16.4 % 13.9 % Monocytes (%) (Auto) 12.5 % 12.3 % Eosinophils (%) (Auto) 1.1 % 0.9 % Basophils (%) (Auto) 0.2 % 0.2 % Neutrophils # (Auto) 3.72 K/uL 4.22 K/uL Lymphocytes # (Auto) 0.88 K/uL 0.81 K/uL Monocytes # (Auto) 0.67 K/uL 0.72 K/uL Eosinophils # (Auto) 0.06 K/uL 0.05 K/uL Basophils # (Auto) 0.01 K/uL 0.01 K/uL RDW Standard Deviation 55.7 fL 53.4 fL RDW Coefficient of Variation 13.6 % 13.2 % Immature Granulocyte % (Auto) 0.4 % 0.5 % Immature Granulocyte # (Auto) 0.02 K/uL 0.03 K/uL Macrocytosis PRESENT PRESENT Sodium Level 136 mmol/L Potassium Level 4.0 mmol/L Chloride Level 108 mmol/L Carbon Dioxide Level 23 mmol/L Anion Gap 5.0 mmol/L Blood Urea Nitrogen 12 mg/dl Creatinine 0.72 mg/dl Est Creatinine Clear Calc Drug Dose 43.9 ml/min Estimated GFR () 89.1 Estimated GFR (Non- 76.9 BUN/Creatinine Ratio 16.7 Random Glucose 116 mg/dl Calcium Level 7.9 mg/dl Toxic Granulation 1+ Total Creatine Kinase 146 U/L Creatine Kinase MB 3.1 ng/ml Creatine Kinase MB Ratio 2.1 Troponin I < 0.015 ng/ml Assessment & Plan RIGHT HIP FRACTURE: -following a mechanical fall -pain control -IV fluids -NPO since midnight -Orthopedics consulted, appreciate recs, planning for surgery this afternoon -SCDs for DVT prophylaxis given MDS, thrombocytopenia -prior attending spoke with patient/Daughter (POA) about risks of bleeding and clot formation -patient can proceed to surgery as planned with no additional workup; was transfused platelets (2 units) this AM CHEST PAIN: -no EKG changes, no elevation of cardiac markers -unlikely cardiac -discussed with Anesthesia, if EKG and labs normal will proceed with Surgery as planned -possibly related to the transfusion of platelets; was pre-treated with acetaminophen and benadryl, but will give solu-medrol IV now -will also give PPI -symptoms resolving without intervention, and vital signs remain stable -no associated symptoms MYELODYSPLASTIC SYNDROME: -with Chronic Thrombocytopenia: platelets had been relatively stable in 50,000 range per patients Hem/Onc -follows with in [place] -has a history of blood transfusion reactions previously (Needs premedicated in case of need for transfusions) -no issues with platelet transfusions previously, today patient reports has had reaction even with platelets on 2 occasions -continue Promacta, Chronic suppressive therapy meds: Acyclovir, Levaquin, Diflucan -no bleeding currently -Hem/Onc consulted: advise 2 unit platelets transfused in the AM today because platelet counts dropped to 44,000 today; will recheck tonight after surgery and transfuse again if needed. Please see consultation for DVT prophylaxis recommendations; appreciate all the input from Hem/Onc CKD STAGE III: -Cr at baseline -monitor GLAUCOMA: -prior Corneal transplants -continue home meds Hx of BREAST CANCER: -S/P mastectomy -Stable HTN: -stable -not on any meds at home, will monitor for now Current Inpatient Medications: Current Inpatient Medications Medications (Trade) Dose Ordered Sig/Shantel Route Start Time Stop Time Status Last Admin Dose Admin Dextrose/Sodium Chloride 1,000 ml @ 100 mls/hr Q10H IV 01/28/17 00:31 02/27/17 00:30 01/29/17 05:55 100 MLS/HR Ondansetron HCl (Zofran Inj) 4 mg Q6H PRN IV 01/28/17 00:45 02/27/17 00:44 Acetaminophen (Tylenol Tab) 650 mg Q6H PRN PO 01/28/17 00:45 02/27/17 00:44 Naloxone HCl (Narcan Inj) 0.1 mg PRN PRN IV 01/28/17 00:45 02/27/17 00:44 Senna/Docusate Sodium (Senokot S Tab) 2 tab HS PO 01/28/17 21:00 02/27/17 20:59 01/28/17 20:56 2 TAB Polyethylene (Miralax Powder Packet) 17 gm DAILY PRN PO 01/28/17 00:45 02/27/17 00:44 Magnesium Hydroxide (Milk Of Magnesia Susp) 30 ml DAILY PRN PO 01/28/17 00:45 02/27/17 00:44 Bisacodyl (Dulcolax Supp) 10 mg DAILY PRN [place] 01/28/17 00:45 02/27/17 00:44 Sodium Biphosphate/ Sodium Phosphate (Fleet Enema) 132 ml PRN PRN [place] 01/28/17 00:45 Acyclovir (Zovirax Tab) 800 mg BID PO 01/28/17 09:00 02/27/17 08:59 01/29/17 09:29 800 MG Dorzolamide/ Timolol (Cosopt Op Soln) 1 drops BID OPL 01/28/17 09:00 02/27/17 08:59 01/29/17 09:26 1 DROPS Fluconazole (Diflucan Tab) 200 mg DAILY PO 01/28/17 09:00 02/27/17 08:59 01/29/17 09:28 200 MG Fluoxetine HCl (Prozac Cap) 40 mg QAM PO 01/28/17 09:00 02/27/17 08:59 01/29/17 09:29 40 MG Levofloxacin (Levaquin Tab) 750 mg DAILY PO 01/28/17 09:00 02/27/17 08:59 01/29/17 09:29 750 MG Acetaminophen/ Hydrocodone Bitart ([place] 5/325 Tab) 1 tab Q6H PRN PO 01/28/17 00:45 02/11/17 00:44 01/28/17 10:12 1 TAB Non-Formulary Medication (Non-Formulary Patient'S Own Med) 1 ea DAILY PO 01/29/17 09:00 02/28/17 08:59 01/29/17 09:29 1 EA Hydromorphone HCl (Dilaudid Inj) 0.5 mg Q3HWA PRN IV 01/28/17 17:45 02/11/17 00:44 01/29/17 09:34 0.5 MG Acetaminophen 650 mg/Empty Bag 65 ml @ 260 mls/hr TODAY@0830 IV 01/29/17 08:30 01/29/17 20:00 01/29/17 09:55 260 MLS/HR Diphenhydramine HCl (Benadryl Inj) 25 mg TODAY@0830 IV 01/29/17 08:30 01/29/17 18:00 01/29/17 09:52 25 MG
[2017-01-29] MEDS ORDERED: BACITRACIN 50000 UNIT VIAL ONE (14:11)
--- NOTE | 2017-01-29 14:17 | History & Physical Bridge Note ---
H&P Re-Evaluation Bridge Note: I have examined the patient, reviewed the History & Physical and in the interval since the performance of the History & Physical I have noted the following changes of clinical significance: No changes noted
--- NOTE | 2017-01-29 14:22 | Orthopedic Progress Note ---
Orthopedic Progress Note Date of Service Jan 29, 2017. Subjective Additional Notes: Patient seen at bedside accompanied by family. Pain well controlled. Received platelet transfusion. Medically cleared to proceed with surgery. Objective NAD, AOX3 RLE NVSI +EHL/FHL/TA/GS SILT grossly, CR< 2 seconds, skin intact over right hip , +ecchymosis Compartments soft NT. Bilateral LE venous status Date Time Temp Pulse Resp B/P (MAP) Pulse Ox O2 Delivery O2 Flow Rate FiO2 01/29/17 12:32 37.0 72 14 148/75 (99) 98 Nasal Cannula 2.0 01/29/17 11:55 36.4 72 125/75 97 2.0 01/29/17 11:51 36.4 74 16 125/75 96 2.0 01/29/17 11:20 36.9 72 12 104/66 96 2.0 01/29/17 10:49 36.6 72 14 101/63 98 2.0 01/29/17 10:35 36.4 73 12 104/66 95 2.0 01/29/17 10:17 36.9 78 20 129/80 01/29/17 07:25 36.8 78 16 146/79 (101) 92 Nasal Cannula 2.0 01/29/17 07:25 Nasal Cannula 2.0 01/28/17 23:30 37.3 71 18 112/72 (85) 97 Room Air 2.0 01/28/17 22:45 Nasal Cannula 2.0 01/28/17 21:37 95 Nasal Cannula 2.0 01/28/17 16:00 94 Nasal Cannula 2.0 01/28/17 15:38 Nasal Cannula 2.0 01/28/17 15:00 36.8 73 16 136/84 (101) 92 Nasal Cannula 2.0 Laboratory Results 24 Hours: Test 01/29/17 06:40 01/29/17 12:18 White Blood Count 5.36 K/uL 5.84 K/uL Red Blood Count 2.65 M/uL 2.57 M/uL Hemoglobin 10.1 g/dL 10.0 g/dL Hematocrit 29.9 % 28.6 % Mean Corpuscular Volume 112.8 fL 111.3 fL Mean Corpuscular Hemoglobin 38.1 pg 38.9 pg Mean Corpuscular Hemoglobin Concent 33.8 g/dl 35.0 g/dl Platelet Count 44 K/uL 65 K/uL Mean Platelet Volume 8.7 fL 8.9 fL Neutrophils (%) (Auto) 69.4 % 72.2 % Lymphocytes (%) (Auto) 16.4 % 13.9 % Monocytes (%) (Auto) 12.5 % 12.3 % Eosinophils (%) (Auto) 1.1 % 0.9 % Basophils (%) (Auto) 0.2 % 0.2 % Neutrophils # (Auto) 3.72 K/uL 4.22 K/uL Lymphocytes # (Auto) 0.88 K/uL 0.81 K/uL Monocytes # (Auto) 0.67 K/uL 0.72 K/uL Eosinophils # (Auto) 0.06 K/uL 0.05 K/uL Basophils # (Auto) 0.01 K/uL 0.01 K/uL Assessment & Plan Assessment: 86 yo Female with displaced right hip femoral neck fracture -I explained the patients diagnosis with her and family and treatment options including hip hemiarthroplasty and non surgical options. I expressed the risk and benefits of surgery in detail. Risks include but not limited to infection, bleeding, blood clots, damage to surround bone, vessels, nerves, soft tissue, need for additional surgery and . The family decided collectively to proceed with surgery and informed consent was obtained. -NPO -IV fluids -NWB RLE -Christine -Jessicaef on hold to OR -Pain controlled -Heme consult appreciated
[2017-01-29] MEDS ORDERED: LABETALOL HCL IV 5 MG/ML 20ML IV PRN (14:30)
[2017-01-29] MEDS ORDERED: ATROPINE SULFATE 0.1 MG/ML 5ML SYR IV PRN (14:30)
[2017-01-29] MEDS ORDERED: MEPERIDINE HCL 25 MG/ML CARP IV PRN (14:30)
[2017-01-29] MEDS ORDERED: HYDROmorphone INJ 1 MG/ML SYR IV PRN (14:30)
[2017-01-29] MEDS ORDERED: ONDANSETRON INJ 2 MG/ML 2 ML VIAL IV PRN ×2 (14:30→17:15)
[2017-01-29] MEDS ORDERED: ROPIVACAINE 5MG/ML 30 ML 150 MG, BUPIVACAINE/EPINEPHR 0.5% MPF 30 ML, KETOROLAC TROMETH... INFIL SCH ×7 (14:30)
[2017-01-29] MEDS ORDERED: FENTANYL CITRATE INJ 50 MCG/1 ML 2 ML VIAL IV PRN (14:30)
[2017-01-29] MEDS ORDERED: EpHEDrine SULFATE INJ 50 MG/ML AMP IV PRN (14:30)
[2017-01-29] MEDS ORDERED: ORTHO JOINT ANESTHETIC ONE (14:49)
[2017-01-29] MEDS ORDERED: ROCURONIUM BROMIDE 10 MG/ML 5 ML VIAL IV ONE (14:51)
[2017-01-29] MEDS ORDERED: CEFAZOLIN SOD 1 GM VIAL ONE (14:51)
[2017-01-29] MEDS ORDERED: DEXAMETHASONE SOD INJ 4 MG/ML VIAL ONE (14:52)
[2017-01-29] MEDS ORDERED: NEOSTIGMINE METHYLSULFATE 5 MG/5 ML SYR ONE (15:40)
[2017-01-29] MEDS ORDERED: GLYCOPYRROLATE INJ 0.2 MG/ML VIAL ONE (15:40)
[2017-01-29] MEDS ORDERED: MoRPHine SULFATE 4 MG/ML 1 ML CARP\\VIAL IV PRN (17:15)
[2017-01-29] MEDS ORDERED: MoRPHine SULFATE 2 MG/ML CARP IV PRN (17:15)
[2017-01-29] MEDS ORDERED: NALOXONE HCL 0.4 MG/1 ML VIAL/CARP IV PRN (17:15)
[2017-01-29] MEDS ORDERED: COUGH DROP (SUGAR FREE) LOZ 24 LOZ/1 BOX PO PRN (17:15)
[2017-01-29] MEDS ORDERED: ACETAMINOPHEN 325 MG TAB PO PRN (17:15)
--- NOTE | 2017-01-29 17:35 | [facility] Operative Report ---
Operative Report Operative Date Jan 29, 2017. Pre-Operative Diagnosis Displaced right hip femoral neck fracture Post-Operative Diagnosis same Procedure(s) Performed Right Bipolar Hip - cemented Surgeon Dr Arthur Machine Deburrer Surgeon(s) Christoph Lopez PA-C Estimated Blood Loss 300ml Findings see dictated op note Specimens a. right femoral head Drains none Anesthesia General Complication(s) None Disposition Recovery Room / PACU Indications 86 yo Female with displaced right femoral neck fracture sustained after tripping on her dog on the evening of 01/27/17. The patient was medically stabilized on 01/28/17 and is followed by hematology. The risks and benefits of surgery were explained to patient and family which included but not limited to infection, bleeding, blood clots, damage to nerves, vessels, bone and soft tissue, need for additional surgery and . The patients family collectively chose to moved forward with surgical intervention and informed consent was obtained. Description of Procedure Following induction of adequate anesthesia, the patient was transfered to the OR table and placed in the lateral decubitus position with left hip down. The right hip was prepped and draped in usual sterile manner. A posterior incision was made. Subcutaneous tissue was sharply dissected. Electrocautery was used for hemostasis. Fascia was incised throughout the length of the wound and the piriformis was identified. The short external rotators were divided from the posterior aspect of the femur. Capsule was opened as well and attention was turned to the femoral neck where soft tissue was cleared from the femoral neck. The fracture was relatively high on the calcar and decision was made to proceed with the oscillating saw and create the calcar osteotomy. This bone fragment was removed. Following this, corkscrew was utilized to remove the femoral head. This was measured on the back table and the 47 femoral head was chosen as the size to be used. Attention was turned to the acetabulum which was found to have no significant arthritis. All bony debris was removed. A sponge was placed in the acetabulum. Attention was then turned to the proximal femur where box osteotome was used to gain access to the femoral canal. A canal finder and power lateralizing reamer were utilized to further open. Sequential raspings were taken up to a size 12, which was sunk completely and trial reduction was carried out and a +0 x 28 mm femoral head was chosen the size to be used with the 47 bipolar cup. Following a trial reduction the calcar reamer was utilized to smooth the calcar and the instruments were removed. The hip was thoroughly irrigated with pulsatile irrigation. The canal was irrigated and dried, cement restrictor was placed and cement was mixed. The 12 low demand fracture stem was placed with a 11 mm centralizer and this was held in position well. All excess cement was removed and cement hardened. Following this, another trial reduction was carried out and again a +0 neck size was chosen as the size to be used. The head and neck were impacted into position and the hip was reduced and was found to be stable to 45 degrees of internal rotation and 90 degrees of flexion. The wound was again irrigated. The joint mix was injected throughout the hip and the capsule was repaired using 5 fiberwire sutures through drill holes. Following this, the short external rotators were reapproximated to the posterior aspect of the femur also through drill holes and these were tied. Once again the wound was copously irrigated with sterile saline solution. Fascia was closed using #1 Vicryl [id number] sutures, subcutaneous tissue was closed using 2-0 vicryl, and skin was closed with pola. A sterile silverlon dressing was applied. The patient was taken to recovery room in stable and good condition. She tolerated the procedure well. I attest to the content of the Intraoperative Record and any orders documented therein. Any exceptions are noted below.
--- NOTE | 2017-01-29 17:47 | Anesthesiology Progress Note ---
Anesthesia Post Op Note Date & Time Jan 29, 2017 at 17:47 Vital Signs Pain Intensity: 0 Vital Signs Past 12 Hours Date Time Temp Pulse Resp B/P (MAP) Pulse Ox O2 Delivery O2 Flow Rate FiO2 01/29/17 17:30 68 12 105/65 93 Nasal Cannula 2 01/29/17 17:20 67 12 107/63 99 Oxymask 10 01/29/17 17:10 68 15 123/64 99 Oxymask 10 01/29/17 17:03 37.0 80 16 144/81 98 Oxymask 10 01/29/17 12:32 37.0 72 14 148/75 (99) 98 Nasal Cannula 2.0 01/29/17 11:55 36.4 72 125/75 97 2.0 01/29/17 11:51 36.4 74 16 125/75 96 2.0 01/29/17 11:20 36.9 72 12 104/66 96 2.0 01/29/17 10:49 36.6 72 14 101/63 98 2.0 01/29/17 10:35 36.4 73 12 104/66 95 2.0 01/29/17 10:17 36.9 78 20 129/80 01/29/17 07:25 36.8 78 16 146/79 (101) 92 Nasal Cannula 2.0 01/29/17 07:25 Nasal Cannula 2.0 Notes Mental Status: alert / awake / arousable, participated in evaluation Pt Amnestic to Procedure: Yes Nausea / Vomiting: adequately controlled Pain: adequately controlled Airway Patency, RR, SpO2: stable & adequate BP & HR: stable & adequate Hydration State: stable & adequate Anesthetic Complications: no major complications apparent
--- NOTE | 2017-01-29 17:47 | Orthopedic Progress Note ---
Orthopedic Progress Note Date of Service Jan 29, 2017. Subjective Additional Notes: Post-op check Patient seen in PACU, comfortable, pain well controlled, no acute issues. Objective NAD, AOx3 RLE NVSI +EHL/FHL/TA/GS SILT grossly, CR< 2 seconds +2 DP Pulse, compartments soft NT, Dressing CDI Date Time Temp Pulse Resp B/P (MAP) Pulse Ox O2 Delivery O2 Flow Rate FiO2 01/29/17 17:10 68 15 123/64 99 Oxymask 10 01/29/17 17:03 37.0 80 16 144/81 98 Oxymask 10 01/29/17 12:32 37.0 72 14 148/75 (99) 98 Nasal Cannula 2.0 01/29/17 11:55 36.4 72 125/75 97 2.0 01/29/17 11:51 36.4 74 16 125/75 96 2.0 01/29/17 11:20 36.9 72 12 104/66 96 2.0 01/29/17 10:49 36.6 72 14 101/63 98 2.0 01/29/17 10:35 36.4 73 12 104/66 95 2.0 01/29/17 10:17 36.9 78 20 129/80 01/29/17 07:25 36.8 78 16 146/79 (101) 92 Nasal Cannula 2.0 01/29/17 07:25 Nasal Cannula 2.0 01/28/17 23:30 37.3 71 18 112/72 (85) 97 Room Air 2.0 01/28/17 22:45 Nasal Cannula 2.0 01/28/17 21:37 95 Nasal Cannula 2.0 Laboratory Results 24 Hours: Test 01/29/17 06:40 01/29/17 12:18 White Blood Count 5.36 K/uL 5.84 K/uL Red Blood Count 2.65 M/uL 2.57 M/uL Hemoglobin 10.1 g/dL 10.0 g/dL Hematocrit 29.9 % 28.6 % Mean Corpuscular Volume 112.8 fL 111.3 fL Mean Corpuscular Hemoglobin 38.1 pg 38.9 pg Mean Corpuscular Hemoglobin Concent 33.8 g/dl 35.0 g/dl Platelet Count 44 K/uL 65 K/uL Mean Platelet Volume 8.7 fL 8.9 fL Neutrophils (%) (Auto) 69.4 % 72.2 % Lymphocytes (%) (Auto) 16.4 % 13.9 % Monocytes (%) (Auto) 12.5 % 12.3 % Eosinophils (%) (Auto) 1.1 % 0.9 % Basophils (%) (Auto) 0.2 % 0.2 % Neutrophils # (Auto) 3.72 K/uL 4.22 K/uL Lymphocytes # (Auto) 0.88 K/uL 0.81 K/uL Monocytes # (Auto) 0.67 K/uL 0.72 K/uL Eosinophils # (Auto) 0.06 K/uL 0.05 K/uL Basophils # (Auto) 0.01 K/uL 0.01 K/uL Assessment & Plan Assessment: s/p R Hip Hemiarthroplasty POD 0 -Ancef x 24 -Post op DVT PPX as per Heme - Lovenox 40mg Daily -Post op CBC, has platelets on hold -AM labs -Post OP XR Right hip - Well align hip prosthesis without fracture/dislocation -Pain controlled -Posterior Hip Precautions -PT/OT -WBAT RLE
--- NOTE | 2017-01-29 17:52 | Anesthesiology Progress Note ---
Anesthesia Post Op Note Date & Time Jan 29, 2017 at 17:52 Vital Signs Pain Intensity: 0 Vital Signs Past 12 Hours Date Time Temp Pulse Resp B/P (MAP) Pulse Ox O2 Delivery O2 Flow Rate FiO2 01/29/17 17:40 37.3 70 13 103/58 93 Nasal Cannula 2 01/29/17 17:30 68 12 105/65 93 Nasal Cannula 2 01/29/17 17:20 67 12 107/63 99 Oxymask 10 01/29/17 17:10 68 15 123/64 99 Oxymask 10 01/29/17 17:03 37.0 80 16 144/81 98 Oxymask 10 01/29/17 12:32 37.0 72 14 148/75 (99) 98 Nasal Cannula 2.0 01/29/17 11:55 36.4 72 125/75 97 2.0 01/29/17 11:51 36.4 74 16 125/75 96 2.0 01/29/17 11:20 36.9 72 12 104/66 96 2.0 01/29/17 10:49 36.6 72 14 101/63 98 2.0 01/29/17 10:35 36.4 73 12 104/66 95 2.0 01/29/17 10:17 36.9 78 20 129/80 01/29/17 07:25 36.8 78 16 146/79 (101) 92 Nasal Cannula 2.0 01/29/17 07:25 Nasal Cannula 2.0 Notes Mental Status: alert / awake / arousable, participated in evaluation Pt Amnestic to Procedure: Yes Nausea / Vomiting: adequately controlled Pain: adequately controlled Airway Patency, RR, SpO2: stable & adequate BP & HR: stable & adequate Hydration State: stable & adequate Anesthetic Complications: no major complications apparent
--- NOTE | 2017-01-29 17:54 | DIAGNOSTIC IMAGING REPORT ---
RIGHT HIP 2 VIEWS CLINICAL HISTORY: Postoperative examination. FINDINGS: AP and crosstable lateral portable views of the right hip are obtained. A right hip arthroplasty is in near-anatomic alignment. No acute fracture is seen. There are expected postoperative findings overlying the right hip including skin clips, subcutaneous gas, and soft tissue swelling. IMPRESSION: Expected postoperative findings status post right hip arthroplasty. No acute fracture is seen. Electronically signed by: Benjamín Pitt M.D. 01/29/2017 5:53 PM Dictated Date/Time: 01/29/2017 5:52 PM
[2017-01-29] MEDS: SODIUM CHLORIDE 0.9% 1000ML 1,000 ML IV SCH (18:28)
[2017-01-29 19:41] LABS: HEMATOCRIT 20.4 % (37-47); MEAN CELL VOLUME 112.7 fL (80-100); MEAN CORPUSCULAR HEMOGLOBIN 39.2 pg (25-34); MEAN CORPUSCULAR HGB CONC 34.8 g/dl (32-36); MEAN PLATELET VOLUME 8.3 fL (7.4-10.4); PLATELET COUNT 41 K/uL (130-400); RED BLOOD COUNT 1.81 M/uL (4.2-5.4); WHITE BLOOD COUNT 4.15 K/uL (4.8-10.8)
[2017-01-29] MEDS ORDERED: ACETAMINOPHEN 325 MG TAB PO SCH (20:30)
[2017-01-29] MEDS ORDERED: DOCUSATE SODIUM/SENNA 50/8.6MG TAB PO SCH (21:00)
[2017-01-29] MEDS: DOCUSATE SODIUM/SENNA 50/8.6MG TAB PO SCH (21:29)
[2017-01-29] MEDS: CEFAZOLIN IV 2,000 MG in DEXTROSE 5% 50ML 50 ML IV SCH (21:33)
[2017-01-29] MEDS ORDERED: NURSING DECISION MEDICATION ORDER SCH (22:30)
[2017-01-30] VITALS (8 sets, daily range): BP systolic 98–117; BP diastolic 61–69; PULSE 75–89; TEMP 36.5–37.6; O2SAT 86–96
[2017-01-30 00:02] LABS: HEMATOCRIT 21.3 % (37-47)
[2017-01-30] MEDS: SODIUM CHLORIDE 0.9% 1000ML 1,000 ML IV SCH (04:02)
[2017-01-30] MEDS: CEFAZOLIN IV 2,000 MG in DEXTROSE 5% 50ML 50 ML IV SCH (05:36)
[2017-01-30] MEDS ORDERED: CEFAZOLIN IV 2,000 MG in DEXTROSE 5% 50ML 50 ML IV SCH (06:00)
[2017-01-30 06:34] LABS: HEMATOCRIT 21.3 % (37-47); MEAN CELL VOLUME 108.1 fL (80-100); MEAN CORPUSCULAR HEMOGLOBIN 38.1 pg (25-34); MEAN CORPUSCULAR HGB CONC 35.2 g/dl (32-36); RED BLOOD COUNT 1.97 M/uL (4.2-5.4); WHITE BLOOD COUNT 4.56 K/uL (4.8-10.8)
[2017-01-30 06:36] LABS: PLATELET COUNT 52 K/uL (130-400)
[2017-01-30 07:04] LABS: BUN/CREATININE RATIO 19.8 (10-20); CALCIUM 7.5 mg/dl (8.5-10.1); CREATININE 0.96 mg/dl (0.60-1.20); POTASSIUM 4.3 mmol/L (3.5-5.1)
[2017-01-30] MEDS: PROMACTA 25 MG PO SCH (07:18)
--- NOTE | 2017-01-30 09:46 | Orthopedic Progress Note ---
Orthopedic Progress Note Date of Service Jan 30, 2017. Subjective Post OP Day: 1 Reports: feeling well, pain controlled w PO medications, Denies: complaints, chest pain, SOB, nausea / vomiting, light headedness, calf pain Objective calves soft nontender, N/V intact, capillary refill less than 2 sec., dressing C /D/I, A&O x3, toes mobile Date Time Temp Pulse Resp B/P (MAP) Pulse Ox O2 Delivery O2 Flow Rate FiO2 01/30/17 07:23 Nasal Cannula 1.5 01/30/17 07:00 36.8 83 16 102/64 (77) 92 Nasal Cannula 2.0 01/30/17 06:51 94 Nasal Cannula 2.0 01/30/17 06:50 89 Room Air 01/30/17 03:47 36.5 75 16 117/63 (81) 95 Nasal Cannula 2.0 01/29/17 23:40 Nasal Cannula 2.0 01/29/17 23:21 36.4 79 16 100/62 (75) 96 Nasal Cannula 2.0 01/29/17 21:00 36.7 66 18 111/69 (83) 93 Nasal Cannula 2.0 01/29/17 20:00 36.4 72 18 104/64 (77) 94 Nasal Cannula 2.0 01/29/17 19:00 36.5 82 16 97/59 (72) 91 Nasal Cannula 2.0 01/29/17 18:30 36.6 68 16 115/58 (77) 95 Nasal Cannula 2.0 01/29/17 18:00 36.7 68 16 106/66 (79) 93 Nasal Cannula 2.0 01/29/17 18:00 92 Nasal Cannula 2.0 01/29/17 18:00 Nasal Cannula 2.0 01/29/17 17:50 69 12 100/55 92 Nasal Cannula 2 01/29/17 17:40 37.3 70 13 103/58 93 Nasal Cannula 2 01/29/17 17:30 68 12 105/65 93 Nasal Cannula 2 01/29/17 17:20 67 12 107/63 99 Oxymask 10 01/29/17 17:10 68 15 123/64 99 Oxymask 10 01/29/17 17:03 37.0 80 16 144/81 98 Oxymask 10 01/29/17 12:32 37.0 72 14 148/75 (99) 98 Nasal Cannula 2.0 01/29/17 11:55 36.4 72 125/75 97 2.0 01/29/17 11:51 36.4 74 16 125/75 96 2.0 01/29/17 11:20 36.9 72 12 104/66 96 2.0 01/29/17 10:49 36.6 72 14 101/63 98 2.0 01/29/17 10:35 36.4 73 12 104/66 95 2.0 01/29/17 10:17 36.9 78 20 129/80 Laboratory Results 24 Hours: Test 01/29/17 12:18 01/29/17 19:06 01/29/17 23:54 01/30/17 06:14 White Blood Count 5.84 K/uL Red Blood Count 2.57 M/uL Hemoglobin 10.0 g/dL 7.1 g/dL 7.4 g/dL 7.5 g/dL Hematocrit 28.6 % 20.4 % 21.3 % 21.3 % Mean Corpuscular Volume 111.3 fL Mean Corpuscular Hemoglobin 38.9 pg Mean Corpuscular Hemoglobin Concent 35.0 g/dl Platelet Count 65 K/uL Mean Platelet Volume 8.9 fL Neutrophils (%) (Auto) 72.2 % Lymphocytes (%) (Auto) 13.9 % Monocytes (%) (Auto) 12.3 % Eosinophils (%) (Auto) 0.9 % Basophils (%) (Auto) 0.2 % Neutrophils # (Auto) 4.22 K/uL Lymphocytes # (Auto) 0.81 K/uL Monocytes # (Auto) 0.72 K/uL Eosinophils # (Auto) 0.05 K/uL Basophils # (Auto) 0.01 K/uL Assessment & Plan Assessment: s/p R Hip Hemiarthroplasty POD #1 -Post op DVT PPX as per Heme - Lovenox 40mg Daily -Post op CBC, has platelets on hold -Post OP XR Right hip - Well align hip prosthesis without fracture/dislocation -Pain controlled -Posterior Hip Precautions -PT/OT -WBAT RLE
[2017-01-30] MEDS: FLUOROMETHOLONE OPH OP SCH (12:00)
[2017-01-30] MEDS: LEVOFLOXACIN 750 MG TAB PO SCH (12:01)
[2017-01-30] MEDS: DORZOLAMIDE/TIMOLOL 22.3/6.8MG/ML 10 ML BTL OPL SCH ×2 (12:01→21:05)
[2017-01-30] MEDS: FLUCONAZOLE 100 MG TAB PO SCH (12:01)
[2017-01-30] MEDS: ACYCLOVIR 400 MG TAB PO SCH ×2 (12:02→21:05)
[2017-01-30] MEDS: FLUOXETINE HCL 20 MG CAP PO SCH (12:02)
[2017-01-30] MEDS: ENOXAPARIN 40 MG/0.4 ML SYR SQ SCH (12:02)
--- NOTE | 2017-01-30 17:50 | Progress Note ---
Medicine Progress Note Date & Time of Visit: Jan 30, 2017 at 17:50. Subjective Patient reports feeling well overall, has some pain/soreness of her right hip but denies worsening and states the pain medication is somewhat helpful. No overnight events noted. No bm yet. Tolerating PO without difficulty. Reports having SOB with exertion. Denies any chest pain. Objective Last 8 Hrs Date Time Temp Pulse Resp B/P (MAP) Pulse Ox O2 Delivery O2 Flow Rate FiO2 01/30/17 15:48 Room Air 01/30/17 15:32 37.2 76 16 107/65 (79) 93 Room Air 01/30/17 11:00 78 18 111/69 (83) 96 Nasal Cannula 2.0 Physical Exam: GENERAL: Patient is in no acute distress. HEENT: No acute trauma, normocephalic atraumatic, mucous membranes moist, no nasal congestion, no scleral icterus. NECK: No stridor, trachea is midline. LUNGS: Clear to auscultation bilaterally, no wheeze, no rhonchi, breath sounds equal. HEART: Without murmurs gallops or rubs, regular rate and rhythm. ABDOMEN: Soft, nontender, bowel sounds positive EXTREMITIES: No cyanosis or edema; bilateral UE with blue-purplish discoloration , unchanged from her usual NEUROLOGIC: Oriented x 3, no acute motor or sensory deficits, no focal weakness. SKIN: No rash, no jaundice, no diaphoresis. Laboratory Results: Last 24 Hours Test 01/29/17 19:06 01/29/17 23:54 01/30/17 06:14 White Blood Count 4.15 K/uL 4.56 K/uL Red Blood Count 1.81 M/uL 1.97 M/uL Hemoglobin 7.1 g/dL 7.4 g/dL 7.5 g/dL Hematocrit 20.4 % 21.3 % 21.3 % Mean Corpuscular Volume 112.7 fL 108.1 fL Mean Corpuscular Hemoglobin 39.2 pg 38.1 pg Mean Corpuscular Hemoglobin Concent 34.8 g/dl 35.2 g/dl RDW Standard Deviation 53.3 fL 50.6 fL RDW Coefficient of Variation 13.1 % 12.9 % Platelet Count 41 K/uL 52 K/uL Mean Platelet Volume 8.3 fL 9.0 fL Sodium Level 134 mmol/L Potassium Level 4.3 mmol/L Chloride Level 105 mmol/L Carbon Dioxide Level 22 mmol/L Anion Gap 8.0 mmol/L Blood Urea Nitrogen 19 mg/dl Creatinine 0.96 mg/dl Est Creatinine Clear Calc Drug Dose 32.9 ml/min Estimated GFR () 62.9 Estimated GFR (Non- 54.3 BUN/Creatinine Ratio 19.8 Random Glucose 169 mg/dl Calcium Level 7.5 mg/dl Assessment & Plan RIGHT HIP FRACTURE: S/P RIGHT HIP HEMIARTHROPLASTY POD#1 -following a mechanical fall -pain control -IV fluids; will stop -Orthopedics consulted, appreciate recs, planning for surgery this afternoon -SCDs for DVT prophylaxis given MDS, thrombocytopenia; now post op is on Lovenox 40 mg daily per Hem/Onc -prior attending spoke with patient/Daughter (POA) about risks of bleeding and clot formation CHEST PAIN: -no EKG changes, no elevation of cardiac markers -unlikely cardiac -discussed with Anesthesia, if EKG and labs normal will proceed with Surgery as planned -possibly related to the transfusion of platelets; was pre-treated with acetaminophen and benadryl, also gave solu-medrol IV -no recurrence -symptoms resolving without intervention, and vital signs remain stable -no associated symptoms MYELODYSPLASTIC SYNDROME: -with Chronic Thrombocytopenia: platelets had been relatively stable in 50,000 range per patients Hem/Onc -follows with in [place] -has a history of blood transfusion reactions previously (Needs premedicated in case of need for transfusions) -no issues with platelet transfusions previously, today patient reports has had reaction even with platelets on 2 occasions -continue Promacta, Chronic suppressive therapy meds: Acyclovir, Levaquin, Diflucan -no bleeding currently -Hem/Onc consulted: advise 2 unit platelets transfused in the AM today because platelet counts dropped to 44,000; Please see consultation for DVT prophylaxis recommendations; appreciate all the input from Hem/Onc -was transfused 1 unit platelets before surgery and has another on hold; will continue to monitor closely and may need the second unit depending on hemostasis CKD STAGE III: -Cr at baseline -monitor GLAUCOMA: -prior Corneal transplants -continue home meds Hx of BREAST CANCER: -S/P mastectomy -Stable HTN: -stable -not on any meds at home, will monitor for now Current Inpatient Medications: Current Inpatient Medications Medications (Trade) Dose Ordered Sig/Shantel Route Start Time Stop Time Status Last Admin Dose Admin Ondansetron HCl (Zofran Inj) 4 mg Q6H PRN IV 01/28/17 00:45 02/27/17 00:44 Acetaminophen (Tylenol Tab) 650 mg Q6H PRN PO 01/28/17 00:45 02/27/17 00:44 Senna/Docusate Sodium (Senokot S Tab) 2 tab HS PO 01/28/17 21:00 02/27/17 20:59 01/29/17 21:29 2 TAB Polyethylene (Miralax Powder Packet) 17 gm DAILY PRN PO 01/28/17 00:45 02/27/17 00:44 Magnesium Hydroxide (Milk Of Magnesia Susp) 30 ml DAILY PRN PO 01/28/17 00:45 02/27/17 00:44 Bisacodyl (Dulcolax Supp) 10 mg DAILY PRN TN 01/28/17 00:45 02/27/17 00:44 Sodium Biphosphate/ Sodium Phosphate (Fleet Enema) 132 ml PRN PRN TN 01/28/17 00:45 Acyclovir (Zovirax Tab) 800 mg BID PO 01/28/17 09:00 02/27/17 08:59 01/30/17 12:02 800 MG Dorzolamide/ Timolol (Cosopt Op Soln) 1 drops BID OPL 01/28/17 09:00 02/27/17 08:59 01/30/17 12:01 1 DROPS Fluconazole (Diflucan Tab) 200 mg DAILY PO 01/28/17 09:00 02/27/17 08:59 01/30/17 12:01 200 MG Fluoxetine HCl (Prozac Cap) 40 mg QAM PO 01/28/17 09:00 02/27/17 08:59 01/30/17 12:02 40 MG Levofloxacin (Levaquin Tab) 750 mg DAILY PO 01/28/17 09:00 02/27/17 08:59 01/30/17 12:01 750 MG Enoxaparin Sodium (Lovenox Inj) 40 mg QAM SQ 01/30/17 09:00 03/01/17 08:59 01/30/17 12:02 40 MG Oxycodone HCl (Roxicodone Immediate Rel Tab) 5 mg Q4H PRN PO 01/29/17 17:15 02/12/17 17:14 Morphine Sulfate (MoRPHine SULFATE INJ) 2 mg Q2H PRN IV 01/29/17 17:15 02/12/17 17:14 Morphine Sulfate (MoRPHine SULFATE INJ) 4 mg Q2H PRN IV 01/29/17 17:15 02/12/17 17:14 Naloxone HCl (Narcan Inj) 0.4 mg Q1M PRN IV 01/29/17 17:15 02/28/17 17:14 Menthol (Nice Lizzette) 1 lizzette Q2H PRN PO 01/29/17 17:15 02/28/17 17:14 Polyethylene (Miralax Powder Packet) 17 gm Q6 PO 01/31/17 06:00 03/02/17 05:59 Non-Formulary Medication (Non-Formulary Patient'S Own Med) 1 ea DAILY@0700 PO 01/30/17 07:00 03/01/17 06:59 01/30/17 07:18 1 EA
[2017-01-30] MEDS: DOCUSATE SODIUM/SENNA 50/8.6MG TAB PO SCH (21:00)
[2017-01-30] MEDS: OXYCODONE HCL IR 5 MG TAB (IMMEDIATE RELEASE) PO PRN (21:48)
[2017-01-31] VITALS (18 sets, daily range): BP systolic 90–126; BP diastolic 51–77; PULSE 78–87; TEMP 36.4–38.1; O2SAT 92–100
[2017-01-31] MEDS: POLYETHYLENE (MIRALAX) 17 GM PACK PO SCH ×3 (05:58→17:53)
[2017-01-31] MEDS: PROMACTA 25 MG PO SCH (06:00)
[2017-01-31] MEDS ORDERED: NURSING VERBAL MED ORDER ONE (06:45)
[2017-01-31] MEDS ORDERED: SODIUM CHLORIDE 0.9% 500ML 500 ML IV ONE (07:00)
--- NOTE | 2017-01-31 07:18 | Orthopedic Progress Note ---
Orthopedic Progress Note Date of Service Jan 31, 2017. Subjective Post OP Day: 2 Reports: feeling well, pain controlled w PO medications, Denies: complaints, chest pain, SOB, nausea / vomiting, light headedness, calf pain Objective calves soft nontender, N/V intact, hip located, incision C/D/I, A&O x3, toes mobile Date Time Temp Pulse Resp B/P (MAP) Pulse Ox O2 Delivery O2 Flow Rate FiO2 01/30/17 23:45 Nasal Cannula 2.0 01/30/17 23:24 96 Nasal Cannula 2.0 01/30/17 23:23 37.6 89 16 98/61 (73) 86 Room Air 01/30/17 19:00 Room Air 01/30/17 15:48 Room Air 01/30/17 15:32 37.2 76 16 107/65 (79) 93 Room Air 01/30/17 11:00 78 18 111/69 (83) 96 Nasal Cannula 2.0 01/30/17 07:23 Nasal Cannula 1.5 Laboratory Results 24 Hours: Test 01/31/17 06:23 Assessment & Plan Assessment: s/p R Hip Hemiarthroplasty POD #2 -dressing change to a prevena vac today -PT/OT -WBAT RLE with walker -follow hip precautions Postop anemia- labs pending -Post op DVT PPX as per Heme - Lovenox 40mg Daily -Post OP XR Right hip - Well align hip prosthesis without fracture/dislocation Discharge Planning Discharge Planning: uncertain
[2017-01-31 07:31] LABS: HEMATOCRIT 18.2 % (37-47); MEAN CELL VOLUME 108.3 fL (80-100); MEAN CORPUSCULAR HEMOGLOBIN 38.7 pg (25-34); MEAN CORPUSCULAR HGB CONC 35.7 g/dl (32-36); MEAN PLATELET VOLUME 8.7 fL (7.4-10.4); PLATELET COUNT 47 K/uL (130-400); RED BLOOD COUNT 1.68 M/uL (4.2-5.4); WHITE BLOOD COUNT 3.53 K/uL (4.8-10.8)
[2017-01-31 07:32] LABS: BUN/CREATININE RATIO 25.5 (10-20); CALCIUM 7.8 mg/dl (8.5-10.1); CREATININE 0.89 mg/dl (0.60-1.20); POTASSIUM 4.1 mmol/L (3.5-5.1)
[2017-01-31] MEDS: DORZOLAMIDE/TIMOLOL 22.3/6.8MG/ML 10 ML BTL OPL SCH ×2 (07:51→21:52)
[2017-01-31] MEDS: FLUOROMETHOLONE OPH OP SCH (07:51)
[2017-01-31] MEDS: ENOXAPARIN 40 MG/0.4 ML SYR SQ SCH (07:52)
[2017-01-31] MEDS: FLUOXETINE HCL 20 MG CAP PO SCH (07:55)
[2017-01-31] MEDS: LEVOFLOXACIN 750 MG TAB PO SCH (07:56)
[2017-01-31] MEDS: FLUCONAZOLE 100 MG TAB PO SCH (07:56)
[2017-01-31] MEDS: ACYCLOVIR 400 MG TAB PO SCH ×2 (07:56→21:51)
[2017-01-31] MEDS ORDERED: DiphenhydrAMINE HCL 50 MG/ML VIAL IV ONE (08:30)
[2017-01-31] MEDS ORDERED: ACETAMINOPHEN 325 MG TAB PO ONE (08:30)
[2017-01-31] MEDS ORDERED: FUROSEMIDE INJ 20 MG in SYRINGE 0 ML IV ONE (09:00)
[2017-01-31] MEDS ORDERED: DiphenhydrAMINE HCL 50 MG/ML VIAL ONE (10:55)
--- NOTE | 2017-01-31 17:58 | Progress Note ---
Medicine Progress Note Date & Time of Visit: Jan 31, 2017 at 17:57. Subjective Patient denies any new complaints, denies feeling SOB but appears visibly SOB when trying to speak full sentences. No overnight events noted. Tolerating PO. No BM yet. Patient has multiple family members at the bedside who were updated. Patient has a wound vac over her incision, does not appear to be bleeding. Objective Last 8 Hrs Date Time Temp Pulse Resp B/P (MAP) Pulse Ox O2 Delivery O2 Flow Rate FiO2 01/31/17 17:15 37.4 85 18 114/72 95 01/31/17 16:36 36.8 84 18 112/63 95 01/31/17 16:18 37.3 81 18 105/65 94 01/31/17 15:49 36.4 78 20 109/61 95 01/31/17 15:15 Nasal Cannula 2.0 01/31/17 14:54 36.8 87 18 104/67 (79) 92 01/31/17 14:00 36.5 80 18 112/68 96 01/31/17 13:01 37.0 80 18 91/60 98 2.0 01/31/17 12:12 36.7 80 18 90/51 100 2.0 01/31/17 12:00 37.4 79 18 104/69 (81) 94 Room Air 01/31/17 11:50 36.8 80 18 93/61 100 2.0 01/31/17 11:36 37.4 81 18 104/65 99 2.0 01/31/17 11:10 37.0 80 16 108/73 Physical Exam: GENERAL: Patient is in no acute distress. HEENT: No acute trauma, normocephalic atraumatic, mucous membranes moist, no nasal congestion, no scleral icterus. NECK: No stridor, trachea is midline. LUNGS: CTA B/L, no wheeze, no rhonchi, breath sounds equal. HEART: Without murmurs gallops or rubs, regular rate and rhythm. ABDOMEN: Soft, nontender, bowel sounds positive EXTREMITIES: No cyanosis or edema; bilateral UE with blue-purplish discoloration , unchanged from her usual; RLE thigh incision with overlying wound vac NEUROLOGIC: Oriented x 3, no acute motor or sensory deficits, no focal weakness. SKIN: No rash, no jaundice, no diaphoresis. Laboratory Results: Last 24 Hours Test 01/31/17 06:23 White Blood Count 3.53 K/uL Red Blood Count 1.68 M/uL Hemoglobin 6.5 g/dL Hematocrit 18.2 % Mean Corpuscular Volume 108.3 fL Mean Corpuscular Hemoglobin 38.7 pg Mean Corpuscular Hemoglobin Concent 35.7 g/dl RDW Standard Deviation 52.6 fL RDW Coefficient of Variation 13.2 % Platelet Count 47 K/uL Mean Platelet Volume 8.7 fL Sodium Level 138 mmol/L Potassium Level 4.1 mmol/L Chloride Level 107 mmol/L Carbon Dioxide Level 22 mmol/L Anion Gap 9.0 mmol/L Blood Urea Nitrogen 23 mg/dl Creatinine 0.89 mg/dl Est Creatinine Clear Calc Drug Dose 35.5 ml/min Estimated GFR () 69.0 Estimated GFR (Non- 59.5 BUN/Creatinine Ratio 25.5 Random Glucose 96 mg/dl Calcium Level 7.8 mg/dl Assessment & Plan RIGHT HIP FRACTURE: S/P RIGHT HIP HEMIARTHROPLASTY POD#2 -following a mechanical fall -pain control -IV fluids; stop -Orthopedics consulted, appreciate recs, planning for surgery this afternoon -SCDs for DVT prophylaxis given MDS, thrombocytopenia; now post op is on Lovenox 40 mg daily per Hem/Onc -prior attending spoke with patient/Daughter (POA) about risks of bleeding and clot formation POSTOPERATIVE ANEMIA SECONDARY TO BLOOD LOSS AND 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: -Hb down to 6.5, and the platelets down to 47 -transfuse 1 unit of platelets and 2 units PRBCs -pre treated with benadryl and tylenol; give 1 dose lasix in between CHEST PAIN: one episode on the day of surgery -no EKG changes, no elevation of cardiac markers -unlikely cardiac -discussed with Anesthesia, if EKG and labs normal will proceed with Surgery as planned -possibly related to the transfusion of platelets; was pre-treated with acetaminophen and benadryl, also gave solu-medrol IV -no recurrence -symptoms resolving without intervention, and vital signs remain stable -no associated symptoms MYELODYSPLASTIC SYNDROME: -with Chronic Thrombocytopenia: platelets had been relatively stable in 50,000 range per patients Hem/Onc -follows with in [place] -has a history of blood transfusion reactions previously (Needs premedicated in case of need for transfusions) -no issues with platelet transfusions previously, today patient reports has had reaction even with platelets on 2 occasions -continue Promacta, Chronic suppressive therapy meds: Acyclovir, Levaquin, Diflucan -no bleeding currently -Hem/Onc consulted: advise 2 unit platelets transfused in the AM today because platelet counts dropped to 44,000; Please see consultation for DVT prophylaxis recommendations; appreciate all the input from Hem/Onc -was transfused 1 unit platelets before surgery and has another on hold; will continue to monitor closely and may need the second unit depending on hemostasis CKD STAGE III: -Cr at baseline -monitor GLAUCOMA: -prior Corneal transplants -continue home meds Hx of BREAST CANCER: -S/P mastectomy -Stable HTN: -stable -not on any meds at home, will monitor for now Current Inpatient Medications: Current Inpatient Medications Medications (Trade) Dose Ordered Sig/Shantel Route Start Time Stop Time Status Last Admin Dose Admin Ondansetron HCl (Zofran Inj) 4 mg Q6H PRN IV 01/28/17 00:45 02/27/17 00:44 Acetaminophen (Tylenol Tab) 650 mg Q6H PRN PO 01/28/17 00:45 02/27/17 00:44 Senna/Docusate Sodium (Senokot S Tab) 2 tab HS PO 01/28/17 21:00 02/27/17 20:59 01/29/17 21:29 2 TAB Polyethylene (Miralax Powder Packet) 17 gm DAILY PRN PO 01/28/17 00:45 02/27/17 00:44 Magnesium Hydroxide (Milk Of Magnesia Susp) 30 ml DAILY PRN PO 01/28/17 00:45 02/27/17 00:44 Bisacodyl (Dulcolax Supp) 10 mg DAILY PRN AR 01/28/17 00:45 02/27/17 00:44 Sodium Biphosphate/ Sodium Phosphate (Fleet Enema) 132 ml PRN PRN AR 01/28/17 00:45 Acyclovir (Zovirax Tab) 800 mg BID PO 01/28/17 09:00 02/27/17 08:59 01/31/17 07:56 800 MG Dorzolamide/ Timolol (Cosopt Op Soln) 1 drops BID OPL 01/28/17 09:00 02/27/17 08:59 01/31/17 07:51 1 DROPS Fluconazole (Diflucan Tab) 200 mg DAILY PO 01/28/17 09:00 02/27/17 08:59 01/31/17 07:56 200 MG Fluoxetine HCl (Prozac Cap) 40 mg QAM PO 01/28/17 09:00 02/27/17 08:59 01/31/17 07:55 40 MG Levofloxacin (Levaquin Tab) 750 mg DAILY PO 01/28/17 09:00 02/27/17 08:59 01/31/17 07:56 750 MG Enoxaparin Sodium (Lovenox Inj) 40 mg QAM SQ 01/30/17 09:00 03/01/17 08:59 01/31/17 07:52 40 MG Oxycodone HCl (Roxicodone Immediate Rel Tab) 5 mg Q4H PRN PO 01/29/17 17:15 02/12/17 17:14 01/30/17 21:48 5 MG Morphine Sulfate (MoRPHine SULFATE INJ) 2 mg Q2H PRN IV 01/29/17 17:15 02/12/17 17:14 Morphine Sulfate (MoRPHine SULFATE INJ) 4 mg Q2H PRN IV 01/29/17 17:15 02/12/17 17:14 Naloxone HCl (Narcan Inj) 0.4 mg Q1M PRN IV 01/29/17 17:15 02/28/17 17:14 Menthol (Nice Lizzette) 1 lizzette Q2H PRN PO 01/29/17 17:15 02/28/17 17:14 Polyethylene (Miralax Powder Packet) 17 gm Q6 PO 01/31/17 06:00 03/02/17 05:59 01/31/17 12:06 17 GM Non-Formulary Medication (Non-Formulary Patient'S Own Med) 1 ea DAILY@0700 PO 01/30/17 07:00 03/01/17 06:59 01/31/17 06:00 1 EA
[2017-01-31] MEDS: DOCUSATE SODIUM/SENNA 50/8.6MG TAB PO SCH (21:51)
--- NOTE | 2017-01-31 22:02 | DIAGNOSTIC IMAGING REPORT ---
CHEST ONE VIEW PORTABLE CLINICAL HISTORY: Hypoxia. COMPARISON STUDY: Chest radiograph January 27, 2017. FINDINGS: Lung volumes are normal. There is no pneumothorax. There are suspected small left and trace right pleural effusions. Mild left basilar opacity favors atelectasis. Interstitial thickening has developed. Cardiomediastinal silhouette is stable. IMPRESSION: 1. Interval development of interstitial thickening which suggests mild pulmonary edema. 2. Small left and trace right pleural effusions. Mild left basilar opacity which favors atelectasis. Electronically signed by: Kentrell Schuler M.D. 01/31/2017 10:00 PM Dictated Date/Time: 01/31/2017 9:58 PM
[2017-02-01] MEDS: POLYETHYLENE (MIRALAX) 17 GM PACK PO SCH ×4 (06:00→18:00)
[2017-02-01] MEDS: PROMACTA 25 MG PO SCH (07:15)
[2017-02-01 07:17] VITALS: BP 127/83; PULSE 77; TEMP 37.2; O2SAT 97
[2017-02-01 07:45] LABS: HEMATOCRIT 20.3 % (37-47); MEAN CELL VOLUME 100.5 fL (80-100); MEAN CORPUSCULAR HEMOGLOBIN 35.6 pg (25-34); MEAN CORPUSCULAR HGB CONC 35.5 g/dl (32-36); MEAN PLATELET VOLUME 9.3 fL (7.4-10.4); PLATELET COUNT 66 K/uL (130-400); RED BLOOD COUNT 2.02 M/uL (4.2-5.4); WHITE BLOOD COUNT 4.09 K/uL (4.8-10.8)
[2017-02-01 07:46] LABS: BUN/CREATININE RATIO 29.4 (10-20); CALCIUM 7.5 mg/dl (8.5-10.1); CREATININE 0.83 mg/dl (0.60-1.20); POTASSIUM 3.7 mmol/L (3.5-5.1)
--- NOTE | 2017-02-01 07:55 | Anesthesiology Progress Note ---
Anesthesia Post Op Note Date & Time Feb 01, 2017 at 07:54 Vital Signs Pain Intensity: 0.0 Vital Signs Past 12 Hours Date Time Temp Pulse Resp B/P (MAP) Pulse Ox O2 Delivery O2 Flow Rate FiO2 02/01/17 07:17 37.2 77 18 127/83 (98) 97 Room Air 01/31/17 23:59 Nasal Cannula 2.0 01/31/17 23:12 37.6 79 16 111/67 (82) 97 Nasal Cannula 2.0 01/31/17 20:34 37.4 Notes Mental Status: alert / awake / arousable, participated in evaluation Pt Amnestic to Procedure: Yes Nausea / Vomiting: adequately controlled Pain: adequately controlled Airway Patency, RR, SpO2: stable & adequate BP & HR: stable & adequate Hydration State: stable & adequate Anesthetic Complications: no major complications apparent
--- NOTE | 2017-02-01 08:27 | Orthopedic Progress Note ---
Orthopedic Progress Note Date of Service Feb 01, 2017. Subjective Post OP Day: 3 Reports: feeling well, complaints (bilateral ankle soreness) Additional Notes: States her hip is feeling fine this AM. Having some soreness in the ankles. No other complaints currently. Objective calves soft nontender, N/V intact, hip located, dressing C/D/I, A&O x3, toes mobile actively PF/DF the ankles. Denies numbness / tingling. Denies radicular pain down the legs. Date Time Temp Pulse Resp B/P (MAP) Pulse Ox O2 Delivery O2 Flow Rate FiO2 02/01/17 07:17 37.2 77 18 127/83 (98) 97 Room Air 01/31/17 23:59 Nasal Cannula 2.0 01/31/17 23:12 37.6 79 16 111/67 (82) 97 Nasal Cannula 2.0 01/31/17 20:34 37.4 01/31/17 18:35 38.1 80 16 126/77 (93) 97 Nasal Cannula 2.0 01/31/17 17:40 37.3 84 16 121/77 (92) 99 Nasal Cannula 2.0 01/31/17 17:15 37.4 85 18 114/72 95 01/31/17 16:36 36.8 84 18 112/63 95 01/31/17 16:18 37.3 81 18 105/65 94 01/31/17 15:49 36.4 78 20 109/61 95 01/31/17 15:15 Nasal Cannula 2.0 01/31/17 14:54 36.8 87 18 104/67 (79) 92 01/31/17 14:00 36.5 80 18 112/68 96 01/31/17 13:01 37.0 80 18 91/60 98 2.0 01/31/17 12:12 36.7 80 18 90/51 100 2.0 01/31/17 12:00 37.4 79 18 104/69 (81) 94 Room Air 01/31/17 11:50 36.8 80 18 93/61 100 2.0 01/31/17 11:36 37.4 81 18 104/65 99 2.0 01/31/17 11:10 37.0 80 16 108/73 Laboratory Results 24 Hours: Test 10/16/17 06:59 Hematocrit 20.3 % Hemoglobin 7.2 g/dL Assessment & Plan Assessment: s/p R Hip Hemiarthroplasty POD #3 -prevena vac on -PT/OT -WBAT RLE with walker -follow hip precautions Postop anemia- follow. Transfuse as per Med Service. Follow platelet levels. Transfuse platelets as per Med Service -Post op DVT PPX as per Heme - Lovenox 40mg Daily -Post OP XR Right hip - Well align hip prosthesis without fracture/dislocation Inhouse Planning Pain Management: Morphine, PO Tylenol, Oxy IR DVT Prophylaxis: TEDs, SCDs, ASA Discharge Planning Discharge Planning: uncertain
[2017-02-01] MEDS: FLUOROMETHOLONE OPH OP SCH (09:15)
[2017-02-01] MEDS: DORZOLAMIDE/TIMOLOL 22.3/6.8MG/ML 10 ML BTL OPL SCH ×2 (09:16→21:10)
[2017-02-01] MEDS: ACYCLOVIR 400 MG TAB PO SCH ×2 (09:16→21:11)
[2017-02-01] MEDS: LEVOFLOXACIN 750 MG TAB PO SCH (09:16)
[2017-02-01] MEDS: FLUCONAZOLE 100 MG TAB PO SCH (09:16)
[2017-02-01] MEDS: ENOXAPARIN 40 MG/0.4 ML SYR SQ SCH (09:17)
[2017-02-01] MEDS: FLUOXETINE HCL 20 MG CAP PO SCH (09:17)
[2017-02-01] MEDS: OXYCODONE HCL IR 5 MG TAB (IMMEDIATE RELEASE) PO PRN (09:40)
[2017-02-01 10:15] VITALS: PULSE 78; O2SAT 95
--- NOTE | 2017-02-01 12:50 | Orthopedic Progress Note ---
Orthopedic Progress Note Date of Service Feb 01, 2017. Subjective Post OP Day: 3 Reports: feeling well, Denies: complaints Additional Notes: Patient seen sitting in chair at bedside. Comfortable, pain well controlled, reports feeling better. No acute issues overnight. Objective RLE: NVSI +EHL/FHL/TA/GS SILT grossly, CR< 2 seconds, compartments soft NT Dressing CDI Date Time Temp Pulse Resp B/P (MAP) Pulse Ox O2 Delivery O2 Flow Rate FiO2 02/01/17 07:45 Nasal Cannula 2.0 02/01/17 07:17 37.2 77 18 127/83 (98) 97 Room Air 01/31/17 23:59 Nasal Cannula 2.0 01/31/17 23:12 37.6 79 16 111/67 (82) 97 Nasal Cannula 2.0 01/31/17 20:34 37.4 01/31/17 18:35 38.1 80 16 126/77 (93) 97 Nasal Cannula 2.0 01/31/17 17:40 37.3 84 16 121/77 (92) 99 Nasal Cannula 2.0 01/31/17 17:15 37.4 85 18 114/72 95 01/31/17 16:36 36.8 84 18 112/63 95 01/31/17 16:18 37.3 81 18 105/65 94 01/31/17 15:49 36.4 78 20 109/61 95 01/31/17 15:15 Nasal Cannula 2.0 01/31/17 14:54 36.8 87 18 104/67 (79) 92 01/31/17 14:00 36.5 80 18 112/68 96 01/31/17 13:01 37.0 80 18 91/60 98 2.0 Laboratory Results 24 Hours: Test 02/01/17 06:59 Hematocrit 20.3 % Hemoglobin 7.2 g/dL Assessment & Plan Assessment: s/p R Hip Hemiarthroplasty POD #3 -prevena vac placed on 01/31/17, maintain 5-7 days -PT/OT -WBAT RLE with walker -follow hip precautions Postop anemia- follow. Transfuse as per Med Service. Follow platelet levels. Transfuse platelets as per Med Service -Post op DVT PPX as per Heme - Lovenox 40mg Daily -Post OP XR Right hip - Well align hip prosthesis without fracture/dislocation Inhouse Planning Pain Management: Morphine, PO Tylenol, Oxy IR DVT Prophylaxis: TEDs, SCDs, ASA Discharge Planning Discharge Planning: uncertain
[2017-02-01 15:17] VITALS: BP 116/72; PULSE 71; TEMP 36.7; O2SAT 99
--- NOTE | 2017-02-01 17:10 | Consultant Recommendations ---
Arabic Professor Recommendations Date of Service Feb 01, 2017. Arabic Professor Recommendations ACTIVITY RECOMMENDATIONS: SELF CARE INSTRUCTIONS AFTER HIP HEMIARTHROPLASTY Until the incision and soft tissues around your hip have healed, there is a possibility that the hip prosthesis could dislocate. A. Observe the following precautions to prevent dislocation: 1. Don't bend your hip greater than 90 degrees. 2. Avoid crossing your legs or ankles while standing or lying. 3. Sit with your feet placed 6 inches apart. 4. When sitting, keep your knees below your hips. Sit on a firm surface, avoid deep, soft chairs and couches. Use an elevated toilet seat in the bathroom. 5. Don't bend over at the waist. Use a long handled shoehorn and a sock aid to help you put on your shoes and socks. A solder making supervisor can help you cook pickled meat objects that are too high or too low to reach. 6. Keep car riding to a minimum for at least one month after surgery. B. Your balance may be shaky for a while. Use crutches or a walker until directed by your doctor. C. Use hand rails when walking on stairs. D. Wear low heeled shoes with non-slip soles. E. Be sure that your floors are free of things that could trip you - throw rugs , electrical cords, small objects. Avoid wet and waxed floors, especially with crutches and canes. F. Try to walk several times a day with rest periods between. G. Continue with all the exercises taught to you in the hospital. Again, make walking a part of your daily routine. SPECIAL CARE INSTRUCTIONS: VERY IMPORTANT TO READ AND REVIEW A. You may still be at risk for phlebitis and blood clots. 1. Wear surgical stockings (VENANCIO hose) for 2 weeks after surgery to improve circulation and reduce swelling. 2. Take Lovenox 40mg subcutaneous once daily or as directed by your doctor. This is your blood thinner. 3. High risk patients may be prescribed a stronger blood thinner if necessary. 4. If you are on Coumadin normally, your family doctor/family living educator should monitor your blood work. Expect a phone call the day of or the day after bloodwork is drawn to adjust your dosage. B. You must take antibiotics before having dental work, bladder, bowel and other surgery. Your doctor will provide you with a permanent card to carry describing precautions. C. Call [facility] if you have a fever, redness or swelling around the incision, cloudy drainage from incision, or sudden increase in pain in your hip, not relieved by your regular pain medication. D. Please call the office at if you have any concerns or questions about your operation or recovery. * YOU MAY SHOWER, NO TUB BATHS UNTIL CLEARED BY YOUR DOCTOR. * WEAR VENANCIO HOSE 20 HOURS PER DAY FOR 2 WEEKS. * YOU SHOULD USE A WALKER OR CRUTCHES FOR 2-4 WEEKS. THIS WILL HELP PREVENT STRAIN ON YOUR HIP MUSCLE AND ALLOW IT TO HEAL PROPERLY. YOU MAY WEAN TO A CANE TOLERATED. * MOST PATIENTS WILL HAVE HOME NURSING FOR THERAPY. IF YOU DECIDE TO DO OUTPATIENT PHYSICAL THERAPY, PLEASE SCHEDULE THIS 3 TIMES PER WEEK. * Prevena- This is a large suction dressing covering your incision. This will help pull any excess drainage from the wound and allow your incision to heal properly. You may shower with this if you can keep the unit outside of the shower. If any bleeding or leakage is noted please call your doctor's office. This will remain on your incision for 7 days and then should be removed 02/07/17. This can be done yourself or by the home nursing staff if applicable. The entire unit is disposable once removed. Once removed, keep incision clean and dry. If redness or drainage is noted, please call your surgeon. . FOLLOW UP VISIT: If appointment is not already scheduled: Please call [facility] to make a follow-up appointment for 2 weeks after your surgery at . (Dr. Arthur)
--- NOTE | 2017-02-01 18:54 | Progress Note ---
Medicine Progress Note Date & Time of Visit: Feb 01, 2017 at 18:54. Objective Last 8 Hrs Date Time Temp Pulse Resp B/P (MAP) Pulse Ox O2 Delivery O2 Flow Rate FiO2 02/01/17 15:17 36.7 71 16 116/72 (87) 99 Nasal Cannula 2.0 02/01/17 15:15 Nasal Cannula 2.0 Physical Exam: GENERAL: Patient is in no acute distress. HEENT: No acute trauma, normocephalic atraumatic, mucous membranes moist, no nasal congestion, no scleral icterus. NECK: No stridor, trachea is midline. LUNGS: CTA B/L, no wheeze, no rhonchi, breath sounds equal. HEART: Without murmurs gallops or rubs, regular rate and rhythm. ABDOMEN: Soft, nontender, bowel sounds positive EXTREMITIES: No cyanosis or edema; bilateral UE with blue-purplish discoloration , unchanged from her usual; RLE thigh incision with overlying wound vac NEUROLOGIC: Oriented x 3, no acute motor or sensory deficits, no focal weakness. SKIN: No rash, no jaundice, no diaphoresis. Laboratory Results: Last 24 Hours Test 02/01/17 06:59 White Blood Count 4.09 K/uL Red Blood Count 2.02 M/uL Hemoglobin 7.2 g/dL Hematocrit 20.3 % Mean Corpuscular Volume 100.5 fL Mean Corpuscular Hemoglobin 35.6 pg Mean Corpuscular Hemoglobin Concent 35.5 g/dl RDW Standard Deviation 72.7 fL RDW Coefficient of Variation 20.6 % Platelet Count 66 K/uL Mean Platelet Volume 9.3 fL Sodium Level 138 mmol/L Potassium Level 3.7 mmol/L Chloride Level 107 mmol/L Carbon Dioxide Level 23 mmol/L Anion Gap 8.0 mmol/L Blood Urea Nitrogen 25 mg/dl Creatinine 0.83 mg/dl Est Creatinine Clear Calc Drug Dose 38.0 ml/min Estimated GFR () 75.1 Estimated GFR (Non- 64.8 BUN/Creatinine Ratio 29.4 Random Glucose 100 mg/dl Calcium Level 7.5 mg/dl Assessment & Plan RIGHT HIP FRACTURE: S/P RIGHT HIP HEMIARTHROPLASTY POD#2 -following a mechanical fall -pain control -IV fluids; stop -Orthopedics consulted, appreciate recs, planning for surgery this afternoon -SCDs for DVT prophylaxis given MDS, thrombocytopenia; now post op is on Lovenox 40 mg daily per Hem/Onc -prior attending spoke with patient/Daughter (POA) about risks of bleeding and clot formation POSTOPERATIVE ANEMIA SECONDARY TO BLOOD LOSS AND 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: -Hb down to 6.5, and the platelets down to 47 -transfuse 1 unit of platelets and 2 units PRBCs -pre treated with benadryl and tylenol; give 1 dose lasix in between CHEST PAIN: one episode on the day of surgery -no EKG changes, no elevation of cardiac markers -unlikely cardiac -discussed with Anesthesia, if EKG and labs normal will proceed with Surgery as planned -possibly related to the transfusion of platelets; was pre-treated with acetaminophen and benadryl, also gave solu-medrol IV -no recurrence -symptoms resolving without intervention, and vital signs remain stable -no associated symptoms MYELODYSPLASTIC SYNDROME: -with Chronic Thrombocytopenia: platelets had been relatively stable in 50,000 range per patients Hem/Onc -follows with in [place] -has a history of blood transfusion reactions previously (Needs premedicated in case of need for transfusions) -no issues with platelet transfusions previously, today patient reports has had reaction even with platelets on 2 occasions -continue Promacta, Chronic suppressive therapy meds: Acyclovir, Levaquin, Diflucan -no bleeding currently -Hem/Onc consulted: advise 2 unit platelets transfused in the AM today because platelet counts dropped to 44,000; Please see consultation for DVT prophylaxis recommendations; appreciate all the input from Hem/Onc -was transfused 1 unit platelets before surgery and has another on hold; will continue to monitor closely and may need the second unit depending on hemostasis CKD STAGE III: -Cr at baseline -monitor GLAUCOMA: -prior Corneal transplants -continue home meds Hx of BREAST CANCER: -S/P mastectomy -Stable HTN: -stable -not on any meds at home, will monitor for now Current Inpatient Medications: Current Inpatient Medications Medications (Trade) Dose Ordered Sig/Shantel Route Start Time Stop Time Status Last Admin Dose Admin Ondansetron HCl (Zofran Inj) 4 mg Q6H PRN IV 01/28/17 00:45 02/27/17 00:44 Acetaminophen (Tylenol Tab) 650 mg Q6H PRN PO 01/28/17 00:45 02/27/17 00:44 01/31/17 19:14 650 MG Senna/Docusate Sodium (Senokot S Tab) 2 tab HS PO 01/28/17 21:00 02/27/17 20:59 01/31/17 21:51 2 TAB Polyethylene (Miralax Powder Packet) 17 gm DAILY PRN PO 01/28/17 00:45 02/27/17 00:44 Magnesium Hydroxide (Milk Of Magnesia Susp) 30 ml DAILY PRN PO 01/28/17 00:45 02/27/17 00:44 Bisacodyl (Dulcolax Supp) 10 mg DAILY PRN AR 01/28/17 00:45 02/27/17 00:44 Sodium Biphosphate/ Sodium Phosphate (Fleet Enema) 132 ml PRN PRN AR 01/28/17 00:45 Acyclovir (Zovirax Tab) 800 mg BID PO 01/28/17 09:00 02/27/17 08:59 02/01/17 09:16 800 MG Dorzolamide/ Timolol (Cosopt Op Soln) 1 drops BID OPL 01/28/17 09:00 02/27/17 08:59 02/01/17 09:16 1 DROPS Fluconazole (Diflucan Tab) 200 mg DAILY PO 01/28/17 09:00 02/27/17 08:59 02/01/17 09:16 200 MG Fluoxetine HCl (Prozac Cap) 40 mg QAM PO 01/28/17 09:00 02/27/17 08:59 02/01/17 09:17 40 MG Levofloxacin (Levaquin Tab) 750 mg DAILY PO 01/28/17 09:00 02/27/17 08:59 02/01/17 09:16 750 MG Enoxaparin Sodium (Lovenox Inj) 40 mg QAM SQ 01/30/17 09:00 03/01/17 08:59 02/01/17 09:17 40 MG Oxycodone HCl (Roxicodone Immediate Rel Tab) 5 mg Q4H PRN PO 01/29/17 17:15 02/12/17 17:14 02/01/17 09:40 5 MG Morphine Sulfate (MoRPHine SULFATE INJ) 2 mg Q2H PRN IV 01/29/17 17:15 02/12/17 17:14 Morphine Sulfate (MoRPHine SULFATE INJ) 4 mg Q2H PRN IV 01/29/17 17:15 02/12/17 17:14 Naloxone HCl (Narcan Inj) 0.4 mg Q1M PRN IV 01/29/17 17:15 02/28/17 17:14 Menthol (Nice Lizzette) 1 lizzette Q2H PRN PO 01/29/17 17:15 02/28/17 17:14 Polyethylene (Miralax Powder Packet) 17 gm Q6 PO 01/31/17 06:00 03/02/17 05:59 01/31/17 12:06 17 GM Non-Formulary Medication (Non-Formulary Patient'S Own Med) 1 ea DAILY@0700 PO 01/30/17 07:00 03/01/17 06:59 02/01/17 07:15 1 EA
[2017-02-01] MEDS: DOCUSATE SODIUM/SENNA 50/8.6MG TAB PO SCH (21:00)
[2017-02-01 23:44] VITALS: BP 119/73; PULSE 76; TEMP 37; O2SAT 98
[2017-02-02] VITALS (11 sets, daily range): BP systolic 108–141; BP diastolic 70–84; PULSE 62–80; TEMP 36.2–37.3; O2SAT 92–100
[2017-02-02] MEDS: POLYETHYLENE (MIRALAX) 17 GM PACK PO SCH
[2017-02-02] MEDS ORDERED: NURSING DECISION MEDICATION ORDER SCH (05:15)
[2017-02-02] MEDS: PROMACTA 25 MG PO SCH (06:29)
[2017-02-02 06:47] LABS: HEMATOCRIT 20.4 % (37-47); MEAN CELL VOLUME 101.5 fL (80-100); MEAN CORPUSCULAR HEMOGLOBIN 35.3 pg (25-34); MEAN CORPUSCULAR HGB CONC 34.8 g/dl (32-36); MEAN PLATELET VOLUME 9.7 fL (7.4-10.4); PLATELET COUNT 59 K/uL (130-400); RED BLOOD COUNT 2.01 M/uL (4.2-5.4); WHITE BLOOD COUNT 4.05 K/uL (4.8-10.8)
[2017-02-02 06:59] LABS: BUN/CREATININE RATIO 35.1 (10-20); CALCIUM 7.7 mg/dl (8.5-10.1); CREATININE 0.64 mg/dl (0.60-1.20); POTASSIUM 3.4 mmol/L (3.5-5.1)
--- NOTE | 2017-02-02 08:04 | Orthopedic Progress Note ---
Orthopedic Progress Note Date of Service Feb 02, 2017. Subjective Post OP Day: 4 Reports: feeling well, Denies: chest pain, SOB, nausea / vomiting, light headedness, calf pain Objective calves soft nontender, N/V intact, hip located, capillary refill less than 2 sec., dressing C/D/I (PREVENA), A&O x3, toes mobile Date Time Temp Pulse Resp B/P (MAP) Pulse Ox O2 Delivery O2 Flow Rate FiO2 02/02/17 07:17 36.7 69 18 121/75 (90) 98 Nasal Cannula 2.0 02/02/17 00:25 Nasal Cannula 2.0 02/01/17 23:44 37.0 76 16 119/73 (88) 98 Room Air 02/01/17 15:17 36.7 71 16 116/72 (87) 99 Nasal Cannula 2.0 02/01/17 15:15 Nasal Cannula 2.0 02/01/17 10:15 78 95 Laboratory Results 24 Hours: Test 02/02/17 06:02 Hematocrit 20.4 % Hemoglobin 7.1 g/dL Assessment & Plan Assessment: s/p R Hip Hemiarthroplasty POD #4 -prevena vac placed on 01/31/17, maintain 5-7 days -PT/OT -WBAT RLE with walker -follow hip precautions Postop anemia- follow. Transfuse as per Med Service. Follow platelet levels. Transfuse platelets as per Med Service -Post op DVT PPX as per Heme - Lovenox 40mg Daily -Post OP XR Right hip - Well align hip prosthesis without fracture/dislocation ORTHOPEDICALLY STABLE. FOLLOW UP IN 10-14 DAYS POST OP. SEE REMARKETING REP RECOMMENDATIONS. WILL SIGN OFF. Inhouse Planning Pain Management: Morphine, PO Tylenol, Oxy IR DVT Prophylaxis: TEDs, SCDs, ASA Discharge Planning Discharge Planning: uncertain
[2017-02-02] MEDS: FLUOROMETHOLONE OPH OP SCH (08:22)
[2017-02-02] MEDS: DORZOLAMIDE/TIMOLOL 22.3/6.8MG/ML 10 ML BTL OPL SCH ×2 (08:23→21:02)
[2017-02-02] MEDS: ACYCLOVIR 400 MG TAB PO SCH ×2 (09:46→21:03)
[2017-02-02] MEDS: FLUCONAZOLE 100 MG TAB PO SCH (09:47)
[2017-02-02] MEDS: LEVOFLOXACIN 750 MG TAB PO SCH (09:47)
[2017-02-02] MEDS: FLUOXETINE HCL 20 MG CAP PO SCH (09:47)
[2017-02-02] MEDS ORDERED: POTASSIUM CHLORIDE 10 MEQ TABCR PO STA (10:15)
[2017-02-02] MEDS: ENOXAPARIN 40 MG/0.4 ML SYR SQ SCH (10:20)
--- NOTE | 2017-02-02 13:53 | Progress Note ---
Internal Med Progress Note Date of Service: Feb 02, 2017. Provider Documentation: SUBJECTIVE: The patient was seen and examined Has had a brief episode of Epistaxis with h/o epistaxis before No more bleeding Generally weak and lethargic OBJECTIVE: Vital Signs-as noted below Exam: General-No distress at rest Has generalized bruising Eyes-normal ENT-normal Neck-normal Lungs-clear to ausucltate bilaterally Heart-Regular,no murmur Abdomen-Benign,no masses,bowel sound present Extremities-No edema Neuro-AAOx3 Generally weak Lab data as noted below. 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: -Hb down to 6.5, and the platelets down to 47 -transfuse 1 unit of platelets and 2 units PRBCs -pre treated with Benadryl and Tylenol; give 1 dose Lasix in between -Will give another unit of Blood today (Hb went down to 7.1) CHEST PAIN: one episode on the day of surgery -no EKG changes, no elevation of cardiac markers -discussed with Anesthesia, if EKG and labs normal will proceed with Surgery as planned -possibly related to the transfusion of platelets; was pre-treated with acetaminophen and benadryl, also gave solu-medrol IV -symptoms resolving without intervention, and vital signs remain stable -no associated symptoms and no more pain MYELODYSPLASTIC SYNDROME: -with Chronic Thrombocytopenia: platelets had been relatively stable in 50,000 range per patients Hem/Onc -follows with in [place] -has a history of blood transfusion reactions previously (Needs premedicated in case of need for transfusions) -no issues with platelet transfusions previously, today patient reports has had reaction even with platelets on 2 occasions -continue Promacta, Chronic suppressive therapy meds: Acyclovir, Levaquin, Diflucan -Hem/Onc consulted: advise 2 unit platelets transfused in the AM today because platelet counts dropped to 44,000; Please see consultation for DVT prophylaxis recommendations; appreciate all the input from Hem/Onc -will transfuse another unit of Blood today CKD STAGE III: -Cr at baseline -monitor GLAUCOMA: -prior Corneal transplants -continue home meds Hx of BREAST CANCER: -S/P mastectomy -Stable HTN: -stable -not on any meds at home, will monitor for now DVT PROPHYLAXIS Lovenox DISPOSITION Awaited Vital Signs: Date Time Temp Pulse Resp B/P (MAP) Pulse Ox O2 Delivery O2 Flow Rate FiO2 02/02/17 12:30 37.0 73 18 123/78 99 02/02/17 11:35 37.0 68 18 141/84 100 2.0 02/02/17 10:35 36.2 69 18 140/70 99 2.0 02/02/17 10:05 36.2 62 18 108/71 97 2.0 02/02/17 09:35 36.9 69 18 108/71 97 2.0 02/02/17 09:19 36.9 70 18 123/83 97 2.0 02/02/17 08:53 36.9 69 18 124/72 02/02/17 08:00 Nasal Cannula 2.0 02/02/17 07:17 36.7 69 18 121/75 (90) 98 Nasal Cannula 2.0 02/02/17 00:25 Nasal Cannula 2.0 02/01/17 23:44 37.0 76 16 119/73 (88) 98 Room Air 02/01/17 15:17 36.7 71 16 116/72 (87) 99 Nasal Cannula 2.0 02/01/17 15:15 Nasal Cannula 2.0 Lab Results: Results Past 24 Hours Test 02/02/17 06:02 Range/Units White Blood Count 4.05 4.8-10.8 K/uL Red Blood Count 2.01 4.2-5.4 M/uL Hemoglobin 7.1 12.0-16.0 g/dL Hematocrit 20.4 37-47 % Mean Corpuscular Volume 101.5 80-100 fL Mean Corpuscular Hemoglobin 35.3 25-34 pg Mean Corpuscular Hemoglobin Concent 34.8 32-36 g/dl RDW Standard Deviation 72.0 36.4-46.3 fL RDW Coefficient of Variation 20.1 11.5-14.5 % Platelet Count 59 130-400 K/uL Mean Platelet Volume 9.7 7.4-10.4 fL Sodium Level 139 136-145 mmol/L Potassium Level 3.4 3.5-5.1 mmol/L Chloride Level 106 98-107 mmol/L Carbon Dioxide Level 25 21-32 mmol/L Anion Gap 8.0 3-11 mmol/L Blood Urea Nitrogen 22 7-18 mg/dl Creatinine 0.64 0.60-1.20 mg/dl Est Creatinine Clear Calc Drug Dose 49.3 ml/min Estimated GFR () 95.0 Estimated GFR (Non- 81.9 BUN/Creatinine Ratio 35.1 10-20 Random Glucose 94 70-99 mg/dl Calcium Level 7.7 8.5-10.1 mg/dl
[2017-02-02] MEDS: DOCUSATE SODIUM/SENNA 50/8.6MG TAB PO SCH (21:00)
[2017-02-03] MEDS: PROMACTA 25 MG PO SCH (06:29)
[2017-02-03 07:29] VITALS: BP 137/79; PULSE 69; TEMP 37; O2SAT 96
[2017-02-03] MEDS: FLUOXETINE HCL 20 MG CAP PO SCH (08:17)
[2017-02-03] MEDS: FLUOROMETHOLONE OPH OP SCH (08:17)
[2017-02-03] MEDS: DORZOLAMIDE/TIMOLOL 22.3/6.8MG/ML 10 ML BTL OPL SCH (08:17)
[2017-02-03] MEDS: ACYCLOVIR 400 MG TAB PO SCH (08:18)
[2017-02-03] MEDS: FLUCONAZOLE 100 MG TAB PO SCH (08:18)
[2017-02-03] MEDS: ENOXAPARIN 40 MG/0.4 ML SYR SQ SCH (08:18)
[2017-02-03] MEDS: LEVOFLOXACIN 750 MG TAB PO SCH (08:19)
[2017-02-03 10:35] LABS: HEMATOCRIT 29.5 % (37-47); MEAN CELL VOLUME 97.4 fL (80-100); MEAN CORPUSCULAR HEMOGLOBIN 34.7 pg (25-34); MEAN CORPUSCULAR HGB CONC 35.6 g/dl (32-36); MEAN PLATELET VOLUME 9.6 fL (7.4-10.4); PLATELET COUNT 64 K/uL (130-400); RED BLOOD COUNT 3.03 M/uL (4.2-5.4); WHITE BLOOD COUNT 4.59 K/uL (4.8-10.8)
--- NOTE | 2017-02-03 12:07 | Progress Note ---
Internal Med Progress Note Date of Service: Feb 03, 2017. Provider Documentation: SUBJECTIVE: The patient was seen and examined Has had a brief episode of Epistaxis with h/o epistaxis before No more bleeding Much better following Blood transfusion Denies any complaints Ready to be discharged today OBJECTIVE: Vital Signs-as noted below Exam: General-No distress at rest Has generalized bruising Eyes-normal ENT-normal Neck-normal Lungs-clear to ausucltate bilaterally Heart-Regular,no murmur Abdomen-Benign,no masses,bowel sound present Extremities-No edema Neuro-AAOx3 Generally weak Lab data as noted below. 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: -Hb down to 6.5, and the platelets down to 47 -transfuse 1 unit of platelets and 2 units PRBCs -pre treated with Benadryl and Tylenol; give 1 dose Lasix in between -Will give another unit of Blood today (Hb went down to 7.1) -Hb went up to 10.4 today on 02/03/17 CHEST PAIN: one episode on the day of surgery -no EKG changes, no elevation of cardiac markers -discussed with Anesthesia, if EKG and labs normal will proceed with Surgery as planned -possibly related to the transfusion of platelets; was pre-treated with acetaminophen and benadryl, also gave solu-medrol IV -symptoms resolving without intervention, and vital signs remain stable -no associated symptoms and no more pain MYELODYSPLASTIC SYNDROME: -with Chronic Thrombocytopenia: platelets had been relatively stable in 50,000 range per patients Hem/Onc -follows with in [place] -has a history of blood transfusion reactions previously (Needs premedicated in case of need for transfusions) -no issues with platelet transfusions previously, today patient reports has had reaction even with platelets on 2 occasions -continue Promacta, Chronic suppressive therapy meds: Acyclovir, Levaquin, Diflucan -Hem/Onc consulted: advise 2 unit platelets transfused in the AM today because platelet counts dropped to 44,000; Please see consultation for DVT prophylaxis recommendations; appreciate all the input from Hem/Onc -will transfuse another unit of Blood today -Platelet 64 on 02/03/17 CKD STAGE III: -Cr at baseline -monitor-normalized GLAUCOMA: -prior Corneal transplants -continue home meds Hx of BREAST CANCER: -S/P mastectomy -Stable HTN: -stable -not on any meds at home, will monitor for now DVT PROPHYLAXIS Lovenox DISPOSITION Discharged to rehab today Vital Signs: Date Time Temp Pulse Resp B/P (MAP) Pulse Ox O2 Delivery O2 Flow Rate FiO2 02/03/17 07:50 Room Air 02/03/17 07:29 37.0 69 19 137/79 (98) 96 Room Air 02/02/17 23:40 Room Air 02/02/17 23:15 37.3 80 16 134/73 (93) 92 Room Air 02/02/17 15:53 36.6 73 18 133/83 (100) 100 Room Air 02/02/17 15:35 99 Room Air 02/02/17 12:30 37.0 73 18 123/78 99 Lab Results: Results Past 24 Hours Test 02/03/17 09:51 Range/Units White Blood Count 4.59 4.8-10.8 K/uL Red Blood Count 3.03 4.2-5.4 M/uL Hemoglobin 10.5 12.0-16.0 g/dL Hematocrit 29.5 37-47 % Mean Corpuscular Volume 97.4 80-100 fL Mean Corpuscular Hemoglobin 34.7 25-34 pg Mean Corpuscular Hemoglobin Concent 35.6 32-36 g/dl Platelet Count 64 130-400 K/uL Mean Platelet Volume 9.6 7.4-10.4 fL
[2017-02-03] MEDS ORDERED: LVNIS40 SQ (12:19)
[2017-02-03] MEDS ORDERED: RXC5 PO (12:19)
[2017-02-03] MEDS ORDERED: MRLP17X PO (12:19)
[2017-02-03] MEDS ORDERED: SENN8.6T7 PO (12:19)
--- NOTE | 2017-02-03 12:23 | Discharge Instructions ---
Discharge Instructions Date of Service Feb 03, 2017. Admission Reason for Admission: Hip Pain, Right Discharge Discharge Diagnosis / Problem: Rt HIP fracture s/p ORIF,MDS Discharge Goals Goal(s): Prevent Disease Progression Activity Recommendations Activity Level: Assistance Required Therapies: Physical Therapy, Occupational Therapy . Additional Information Patient informed of condition: Yes Advance Directives: No DNR: No Level of Care: Skilled Communicable Disease: No Prognosis: Stable Oxygen at (LPM): 2 liters/min vai NC PRN King Catheter: No Instructions / Follow-Up Instructions / Follow-Up Please make an appointment with your PCP within 1 week of discharge from the Facility.Keep Ortho appointment Current Hospital Diet Patient's current hospital diet: Regular Diet Discharge Diet Recommended Diet: Regular Diet Procedures Procedures Performed: Right Bipolar Hip - cemented Pending Studies Studies pending at discharge: no Physician Orders On Transfer POLST Discussion: Not Applicable Medical Emergencies . Who to Call and When: Medical Emergencies: If at any time you feel your situation is an emergency, please call 911 immediately. . Non-Emergent Contact Non-Emergency issues call your: Primary Care Provider . Past History Medical & Surgical History: (1) MDS (myelodysplastic syndrome) (2) Subcapital fracture of right hip (3) Fall . "Provider Documentation" section prepared by Benita Saleh. . Production Or Plant Engineer Recommendations Production Or Plant Engineer Recommendations: ACTIVITY RECOMMENDATIONS: SELF CARE INSTRUCTIONS AFTER HIP HEMIARTHROPLASTY Until the incision and soft tissues around your hip have healed, there is a possibility that the hip prosthesis could dislocate. A. Observe the following precautions to prevent dislocation: 1. Don't bend your hip greater than 90 degrees. 2. Avoid crossing your legs or ankles while standing or lying. 3. Sit with your feet placed 6 inches apart. 4. When sitting, keep your knees below your hips. Sit on a firm surface, avoid deep, soft chairs and couches. Use an elevated toilet seat in the bathroom. 5. Don't bend over at the waist. Use a long handled shoehorn and a sock aid to help you put on your shoes and socks. A design chief can help you cotton picking machine operator objects that are too high or too low to reach. 6. Keep car riding to a minimum for at least one month after surgery. B. Your balance may be shaky for a while. Use crutches or a walker until directed by your doctor. C. Use hand rails when walking on stairs. D. Wear low heeled shoes with non-slip soles. E. Be sure that your floors are free of things that could trip you - throw rugs , electrical cords, small objects. Avoid wet and waxed floors, especially with crutches and canes. F. Try to walk several times a day with rest periods between. G. Continue with all the exercises taught to you in the hospital. Again, make walking a part of your daily routine. SPECIAL CARE INSTRUCTIONS: VERY IMPORTANT TO READ AND REVIEW A. You may still be at risk for phlebitis and blood clots. 1. Wear surgical stockings (VENANCIO hose) for 2 weeks after surgery to improve circulation and reduce swelling. 2. Take Lovenox 40mg subcutaneous once daily or as directed by your doctor. This is your blood thinner. 3. High risk patients may be prescribed a stronger blood thinner if necessary. 4. If you are on Coumadin normally, your family doctor/pattern layout worker should monitor your blood work. Expect a phone call the day of or the day after bloodwork is drawn to adjust your dosage. B. You must take antibiotics before having dental work, bladder, bowel and other surgery. Your doctor will provide you with a permanent card to carry describing precautions. C. Call [facility] if you have a fever, redness or swelling around the incision, cloudy drainage from incision, or sudden increase in pain in your hip, not relieved by your regular pain medication. D. Please call the office at if you have any concerns or questions about your operation or recovery. * YOU MAY SHOWER, NO TUB BATHS UNTIL CLEARED BY YOUR DOCTOR. * WEAR VENANCIO HOSE 20 HOURS PER DAY FOR 2 WEEKS. * YOU SHOULD USE A WALKER OR CRUTCHES FOR 2-4 WEEKS. THIS WILL HELP PREVENT STRAIN ON YOUR HIP MUSCLE AND ALLOW IT TO HEAL PROPERLY. YOU MAY WEAN TO A CANE TOLERATED. * MOST PATIENTS WILL HAVE HOME NURSING FOR THERAPY. IF YOU DECIDE TO DO OUTPATIENT PHYSICAL THERAPY, PLEASE SCHEDULE THIS 3 TIMES PER WEEK. * Prevena- This is a large suction dressing covering your incision. This will help pull any excess drainage from the wound and allow your incision to heal properly. You may shower with this if you can keep the unit outside of the shower. If any bleeding or leakage is noted please call your doctor's office. This will remain on your incision for 7 days and then should be removed 02/07/17. This can be done yourself or by the home nursing staff if applicable. The entire unit is disposable once removed. Once removed, keep incision clean and dry. If redness or drainage is noted, please call your surgeon. . FOLLOW UP VISIT: If appointment is not already scheduled: Please call [facility] to make a follow-up appointment for 2 weeks after your surgery at . (Dr. Arthur) Core Measure Problem Core Measures: None
[2017-02-03 13:23] VITALS: BP 137/79; PULSE 69; TEMP 37; O2SAT 96
[2017-02-03] MEDS: OXYCODONE HCL IR 5 MG TAB (IMMEDIATE RELEASE) PO PRN (13:40)
--- NOTE | 2017-02-04 08:24 | Discharge Summary ---
Discharge Summary Date of Service Feb 04, 2017. Discharge Summary Admission Date: Jan 28, 2017 at 00:41 Discharge Date: Feb 03, 2017 Discharge Disposition: [facility] facility Principal Diagnosis: Rt HIP fracture s/p ORIF,MDS Secondary Diagnoses/Problems: Please see H&P and Hospital Progress note Consultations: Ortho and Hematology Medication Reconciliation New Medications: Enoxaparin (Enoxaparin Sodium) 40 Mg/0.4 Ml Inj 40 MG SQ QAM for 20 Days, #20 Please check Platelet about 2 times per week and if it is below 50K, hold Lovenox.May need to contact Dr Garcia for an alternative medication. Oxycodone HCl (Oxycodone HCl) 5 Mg Tab 5 MG PO Q4H PRN for Moderate Pain (pain scale 4-6) for 7 Days, #28 TAB Polyethylene (Miralax) 17 Gm Pow 17 GM PO DAILY PRN for Constipation for 30 Days, #30 Sennosides-Docusate Sodium (Senokot S) 1 Tab Tab 2 TAB PO HS for 30 Days, #60 TAB Continued Medications: Acyclovir (Zovirax) 800 Mg Tab 800 MG PO BID for 10 Days, #20 TAB Dorzolamide Hcl-Timolol Maleat (Cosopt Oph) 1 Omayra Omayra 1 DROPS OPL BID, #10 ML 3 Refills Eltrombopag Olamine (Promacta) 12.5 Mg Tab 25 MG PO DAILY Fluconazole (Diflucan) 200 Mg Tab 200 MG PO DAILY, TAB Fluorometholone (Ophth) (Fml Liquifilm) 0.1 % Rashmi 2 DROPS OPB QAM, #5 ML Fluoxetine (Prozac) 40 Mg Cap 40 MG PO QAM, CAP Levofloxacin (Levaquin) 750 Mg Tab 750 MG PO DAILY, TAB Admission Information HPI (per Admitting provider): Patient is an 86 Yr female with PMH of Myelodysplastic Syndrome, chronic Thrombocytopenia, CKD III, Glaucoma, H/O Breast cancer S/P mastectomy, H/O Corneal transplant, HTN, H/O 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 Patient states she was chasing her dog off the porch while she tripped and fell on her right side. Denies any head trauma, LOC, dizziness, change in vision. Complains of right hip pain which is spasmodic, intermittent, 5/10 intensity, non radiating. Denies any fever, chills, chest pain, SOB, abd pain, dysuria but feels nauseous , weakness, numbness. Offers no other relevant history. 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 and chronic diarrhea Past Surgical History: Mastectomy Corneal Transplant Family History Reviewed, not relevant Social History Smoking Status: Never Smoker Alcohol Use: none Drug Use: none Allergies Coded Allergies: BEE STING (Verified Allergy, Severe, ANAPHYLAXIS, 01/27/17) Home Medications Scheduled Acyclovir (Zovirax), 800 MG PO BID Dorzolamide Hcl-Timolol Maleat (Cosopt Oph), 1 DROPS OPL BID Eltrombopag Olamine (Promacta), 25 MG PO DAILY Fluconazole (Diflucan), 200 MG PO DAILY Fluorometholone (Ophth) (Fml Liquifilm), 2 DROPS OPB QAM Fluoxetine (Prozac), 40 MG PO QAM Levofloxacin (Levaquin), 750 MG PO DAILY Review of Systems See HPI for pertinent positives & negatives. A total of 10 systems reviewed and were otherwise negative. Physical Ex - H&P Physical Exam Vital Signs Date Time Temp Pulse Resp B/P (MAP) Pulse Ox O2 Delivery O2 Flow Rate FiO2 01/28/17 00:16 71 16 140/85 94 Room Air 01/27/17 23:44 68 16 155/89 94 Room Air 01/27/17 22:58 69 01/27/17 22:33 36.6 67 16 169/97 95 Room Air General Appearance: + mild distress (secondary to pain), + thin Head: normocephalic, atraumatic Eyes: normal inspection, PERRL, EOMI, sclerae normal ENT: normal ENT inspection, hearing grossly normal Neck: supple, no JVD, trachea midline Respiratory/Chest: chest non-tender, lungs clear, normal breath sounds, no respiratory distress, no accessory muscle use Cardiovascular: regular rate, rhythm, no edema, no murmur Abdomen/GI: normal bowel sounds, non tender, soft Back: normal inspection Extremities/Musculoskelatal: normal inspection, no pedal edema Neurologic/Psych: emotional support teacher II-XII nml as tested, no motor/sensory deficits, alert, normal mood/affect, oriented x 3 Skin: warm/dry, + pertinent finding (Chronic Echymotic changes on B/L Upper and lower extremities) Diagnostics - H&P Diagnostics Laboratory Results Results Past 24 Hours Test 01/27/17 22:56 01/27/17 23:11 Range/Units White Blood Count 5.31 4.8-10.8 K/uL Red Blood Count 3.19 4.2-5.4 M/uL Hemoglobin 12.0 12.0-16.0 g/dL Hematocrit 35.2 37-47 % Mean Corpuscular Volume 110.3 80-100 fL Mean Corpuscular Hemoglobin 37.6 25-34 pg Mean Corpuscular Hemoglobin Concent 34.1 32-36 g/dl Platelet Count 61 130-400 K/uL Mean Platelet Volume 9.3 7.4-10.4 fL Neutrophils (%) (Auto) 65.6 % Lymphocytes (%) (Auto) 18.6 % Monocytes (%) (Auto) 12.4 % Eosinophils (%) (Auto) 2.4 % Basophils (%) (Auto) 0.2 % Neutrophils # (Auto) 3.48 1.4-6.5 K/uL Lymphocytes # (Auto) 0.99 1.2-3.4 K/uL Monocytes # (Auto) 0.66 0.11-0.59 K/uL Eosinophils # (Auto) 0.13 0-0.5 K/uL Basophils # (Auto) 0.01 0-0.2 K/uL RDW Standard Deviation 53.6 36.4-46.3 fL RDW Coefficient of Variation 13.4 11.5-14.5 % Immature Granulocyte % (Auto) 0.8 % Immature Granulocyte # (Auto) 0.04 0.00-0.02 K/uL Platelet Estimate DECREASED Macrocytosis PRESENT Prothrombin Time 10.0 9.0-12.0 SECONDS Prothromb Time International Ratio 0.9 0.9-1.1 Activated Partial Thromboplast Time 27.9 21.0-31.0 SECONDS Partial Thromboplastin Ratio 1.1 Sodium Level 140 136-145 mmol/L Potassium Level 4.6 3.5-5.1 mmol/L Chloride Level 109 98-107 mmol/L Carbon Dioxide Level 23 21-32 mmol/L Anion Gap 8.0 3-11 mmol/L Blood Urea Nitrogen 14 7-18 mg/dl Creatinine 0.94 0.60-1.20 mg/dl Est Creatinine Clear Calc Drug Dose 33.6 ml/min Estimated GFR () 64.6 Estimated GFR (Non- 55.7 BUN/Creatinine Ratio 15.0 10-20 Random Glucose 123 70-99 mg/dl Calcium Level 8.3 8.5-10.1 mg/dl Urine Color YELLOW Urine Appearance CLEAR CLEAR Urine pH 5.5 4.5-7.5 Urine Specific [place] 1.019 1.000-1.030 Urine Protein 1+ NEG Urine Glucose (UA) NEG NEG Urine Ketones TRACE NEG Urine Occult Blood NEG NEG Urine Nitrite NEG NEG Urine Bilirubin NEG NEG Urine Urobilinogen NEG NEG Urine Leukocyte Esterase NEG NEG Urine WBC (Auto) 1-5 0-5 /hpf Urine RBC (Auto) 0-4 0-4 /hpf Urine Hyaline Casts (Auto) 1-5 0-5 /lpf Urine Epithelial Cells (Auto) 5-10 0-5 /lpf Urine Bacteria (Auto) NEG NEG Diagnostic Radiology Hip X ray: suggestive of Right hip fracture. Official read is pending CXR: No acute process Official read is pending EKG EKG: NSR, QTC:446 Impression - H&P Impression Assessment and Plan Right Hip Fracture: S/P mechanical fall Pain control IV fluids NPO for now Orthopedics consulted SCDs for DVT prophylaxis given MDS, thrombocytopenia Discussed with patient/Daughter (POA) about risks of bleeding and clot formation Myelodysplastic Syndrome: Chronic Thrombocytopenia: Follows with in [place] States having blood transfusion reactions previously (Needs premedicated in case of need for transfusions) States no issues with platelet transfusions Type and Cross Continue Promacta, Chronic suppressive therapy meds:Acyclovir, Levaquin, Diflucan Currently no bleeding issues CKD III: Cr at baseline monitor Glaucoma: H/O Corneal transplant Continue home meds H/O Breast cancer S/P mastectomy, Stable HTN: Stable Currently not on any meds at home DVT Px: SCDs: Re: MDS, thrombocytopenia Code Status: Full Code. Discussed with patient/POA:daughter VTE Prophylaxis VTE Risk Assessment Done? Y/N: Yes Risk Level: Moderate Physical Exam (per Admitting): General Appearance: + mild distress (secondary to pain), + thin Head: normocephalic, atraumatic Eyes: normal inspection, PERRL, EOMI, sclerae normal ENT: normal ENT inspection, hearing grossly normal Neck: supple, no JVD, trachea midline Respiratory/Chest: chest non-tender, lungs clear, normal breath sounds, no respiratory distress, no accessory muscle use Cardiovascular: regular rate, rhythm, no edema, no murmur Abdomen/GI: normal bowel sounds, non tender, soft Back: normal inspection Extremities/Musculoskelatal: normal inspection, no pedal edema Neurologic/Psych: emotional support teacher II-XII nml as tested, no motor/sensory deficits, alert , normal mood/affect, oriented x 3 Skin: warm/dry, + pertinent finding (Chronic Echymotic changes on B/L Upper and lower extremities) Hospital Course RIGHT HIP FRACTURE: S/P RIGHT HIP HEMIARTHROPLASTY POD # 4 -following a mechanical fall -Orthopedics consulted, appreciate recommendation and Sx -SCDs for DVT prophylaxis given MDS, thrombocytopenia; now post op is on Lovenox 40 mg daily per Hem/Onc -prior attending spoke with patient/Daughter (POA) about risks of bleeding and clot formation -will continue Lovenox as long as Platelet count >50K -Medically stable to be discharged POSTOPERATIVE ANEMIA SECONDARY TO BLOOD LOSS AND 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: -Hb down to 6.5, and the platelets down to 47 -transfuse 1 unit of platelets and 2 units PRBCs -pre treated with Benadryl and Tylenol; give 1 dose Lasix in between -Will give another unit of Blood today (Hb went down to 7.1) -Hb went up to 10.4 today on 02/03/17 CHEST PAIN: one episode on the day of surgery -no EKG changes, no elevation of cardiac markers -discussed with Anesthesia, if EKG and labs normal will proceed with Surgery as planned -possibly related to the transfusion of platelets; was pre-treated with acetaminophen and benadryl, also gave solu-medrol IV -symptoms resolving without intervention, and vital signs remain stable -no associated symptoms and no more pain MYELODYSPLASTIC SYNDROME: -with Chronic Thrombocytopenia: platelets had been relatively stable in 50,000 range per patients Hem/Onc -follows with in [place] -has a history of blood transfusion reactions previously (Needs premedicated in case of need for transfusions) -no issues with platelet transfusions previously, today patient reports has had reaction even with platelets on 2 occasions -continue Promacta, Chronic suppressive therapy meds: Acyclovir, Levaquin, Diflucan -Hem/Onc consulted: advise 2 unit platelets transfused in the AM today because platelet counts dropped to 44,000; Please see consultation for DVT prophylaxis recommendations; appreciate all the input from Hem/Onc -will transfuse another unit of Blood today -Platelet 64 on 02/03/17 CKD STAGE III: -Cr at baseline -monitor-normalized GLAUCOMA: -prior Corneal transplants -continue home meds Hx of BREAST CANCER: -S/P mastectomy -Stable HTN: -stable -not on any meds at home, will monitor for now DVT PROPHYLAXIS Lovenox DISPOSITION Discharged to rehab today Total time spent on discharge = 35 minutes This includes examination of the patient, discharge planning, medication reconciliation, and communication with other providers. Discharge Instructions Date of Service Feb 03, 2017. Admission Reason for Admission: Hip Pain, Right Discharge Discharge Diagnosis / Problem: Rt HIP fracture s/p ORIF,MDS Discharge Goals Goal(s): Prevent Disease Progression Activity Recommendations Activity Level: Assistance Required Therapies: Physical Therapy, Occupational Therapy . Additional Information Patient informed of condition: Yes Advance Directives: No DNR: No Level of Care: Skilled Communicable Disease: No Prognosis: Stable Oxygen at (LPM): 2 liters/min vai [place] PRN King Catheter: No Instructions / Follow-Up Instructions / Follow-Up Please make an appointment with your PCP within 1 week of discharge from the Facility.Keep Ortho appointment Current Hospital Diet Patient's current hospital diet: Regular Diet Discharge Diet Recommended Diet: Regular Diet Procedures Procedures Performed: Right Bipolar Hip - cemented Pending Studies Studies pending at discharge: no Physician Orders On Transfer POLST Discussion: Not Applicable Medical Emergencies . Who to Call and When: Medical Emergencies: If at any time you feel your situation is an emergency, please call 911 immediately. . Non-Emergent Contact Non-Emergency issues call your: Primary Care Provider . Past History Medical & Surgical History: (1) MDS (myelodysplastic syndrome) (2) Subcapital fracture of right hip (3) Fall . "Provider Documentation" section prepared by Benita Saleh. . Tube Filler Recommendations Tube Filler Recommendations: ACTIVITY RECOMMENDATIONS: SELF CARE INSTRUCTIONS AFTER HIP HEMIARTHROPLASTY Until the incision and soft tissues around your hip have healed, there is a possibility that the hip prosthesis could dislocate. A. Observe the following precautions to prevent dislocation: 1. Don't bend your hip greater than 90 degrees. 2. Avoid crossing your legs or ankles while standing or lying. 3. Sit with your feet placed 6 inches apart. 4. When sitting, keep your knees below your hips. Sit on a firm surface, avoid deep, soft chairs and couches. Use an elevated toilet seat in the bathroom. 5. Don't bend over at the waist. Use a long handled shoehorn and a sock aid to help you put on your shoes and socks. A functional architect can help you leaf size picker objects that are too high or too low to reach. 6. Keep car riding to a minimum for at least one month after surgery. B. Your balance may be shaky for a while. Use crutches or a walker until directed by your doctor. C. Use hand rails when walking on stairs. D. Wear low heeled shoes with non-slip soles. E. Be sure that your floors are free of things that could trip you - throw rugs , electrical cords, small objects. Avoid wet and waxed floors, especially with crutches and canes. F. Try to walk several times a day with rest periods between. G. Continue with all the exercises taught to you in the hospital. Again, make walking a part of your daily routine. SPECIAL CARE INSTRUCTIONS: VERY IMPORTANT TO READ AND REVIEW A. You may still be at risk for phlebitis and blood clots. 1. Wear surgical stockings (VENANCIO hose) for 2 weeks after surgery to improve circulation and reduce swelling. 2. Take Lovenox 40mg subcutaneous once daily or as directed by your doctor. This is your blood thinner. 3. High risk patients may be prescribed a stronger blood thinner if necessary. 4. If you are on Coumadin normally, your family doctor/investment sales assistant should monitor your blood work. Expect a phone call the day of or the day after bloodwork is drawn to adjust your dosage. B. You must take antibiotics before having dental work, bladder, bowel and other surgery. Your doctor will provide you with a permanent card to carry describing precautions. C. Call [facility] if you have a fever, redness or swelling around the incision, cloudy drainage from incision, or sudden increase in pain in your hip, not relieved by your regular pain medication. D. Please call the office at if you have any concerns or questions about your operation or recovery. * YOU MAY SHOWER, NO TUB BATHS UNTIL CLEARED BY YOUR DOCTOR. * WEAR VENANCIO HOSE 20 HOURS PER DAY FOR 2 WEEKS. * YOU SHOULD USE A WALKER OR CRUTCHES FOR 2-4 WEEKS. THIS WILL HELP PREVENT STRAIN ON YOUR HIP MUSCLE AND ALLOW IT TO HEAL PROPERLY. YOU MAY WEAN TO A CANE TOLERATED. * MOST PATIENTS WILL HAVE HOME NURSING FOR THERAPY. IF YOU DECIDE TO DO OUTPATIENT PHYSICAL THERAPY, PLEASE SCHEDULE THIS 3 TIMES PER WEEK. * Prevena- This is a large suction dressing covering your incision. This will help pull any excess drainage from the wound and allow your incision to heal properly. You may shower with this if you can keep the unit outside of the shower. If any bleeding or leakage is noted please call your doctor's office. This will remain on your incision for 7 days and then should be removed 02/07/17. This can be done yourself or by the home nursing staff if applicable. The entire unit is disposable once removed. Once removed, keep incision clean and dry. If redness or drainage is noted, please call your surgeon. . FOLLOW UP VISIT: If appointment is not already scheduled: Please call [facility] to make a follow-up appointment for 2 weeks after your surgery at . (Dr. Arthur) Core Measure Problem Core Measures: None <Electronically signed by Benita Saleh M.D.> Signed: 02/03/17 1223 Additional Copies To TYLER DRAKE
== END 2017-02-03 14:05 | DRG 470 ==
LOC: EDBD 22:22 → C.EDA 22:24 → C.MSN 01-28 00:41 → ENRESERV 01-28 00:52
PROVIDERS: ADMIT Internal Medicine; ATTEND Internal Medicine
PROC: 0SR90J9 Replacement of Right Hip Joint with Synthetic Substitute, Cemented, Open Approach (ICD-10-PCS; principal; 2017-01-29 11:00)
DX: S72.001A Fracture of unspecified part of neck of right femur, initial encounter for closed fracture (principal); D62 Acute posthemorrhagic anemia; R07.9 Chest pain, unspecified; N18.3 Chronic kidney disease, stage 3 (moderate); I12.9 Hypertensive chronic kidney disease with stage 1 through stage 4 chronic kidney disease, or unspecified chronic kidney disease; D46.9 Myelodysplastic syndrome, unspecified; D69.59 Other secondary thrombocytopenia; D63.0 Anemia in neoplastic disease; H40.9 Unspecified glaucoma; Z51.81 Encounter for therapeutic drug level monitoring; Z79.899 Other long term (current) drug therapy; Z85.3 Personal history of malignant neoplasm of breast; Z94.7 Corneal transplant status; W01.0XXA Fall on same level from slipping, tripping and stumbling without subsequent striking against object, initial encounter; Y93.K9 Activity, other involving animal care; Y92.008 Other place in unspecified non-institutional (private) residence as the place of occurrence of the external cause; Y99.8 Other external cause status

== ENCOUNTER → 2017-02-08 | Outpatient (CLI) | payer OTHER, MEDICARE ==
[~2017-02-08] MED LIST: ACYC-251 PO; DORZ1SOL6 OPL; ELTR12.58 PO; FLUC200T4 PO; FLUO0.1S2 OPB; FLUO40CA8 PO; LEVO1TAB35 PO; LVNIS40 SQ; MRLP17X PO; RXC5 PO; SENN8.6T7 PO
[2017-02-08 09:02] LABS: HEMATOCRIT 26.7 % (37-47); MEAN CORPUSCULAR HEMOGLOBIN 33.7 pg (25-34); MEAN CORPUSCULAR HGB CONC 33.7 g/dl (32-36); RED BLOOD COUNT 2.67 M/uL (4.2-5.4); WHITE BLOOD COUNT 4.53 K/uL (4.8-10.8)
[2017-02-08 09:06] LABS: BLOOD UREA NITROGEN 19 mg/dl (7-18); BUN/CREATININE RATIO 34.9 (10-20); CARBON DIOXIDE 24 mmol/L (21-32); CHLORIDE 108 mmol/L (98-107); CREATININE 0.54 mg/dl (0.60-1.20); GLUCOSE 92 mg/dl (70-99); SODIUM 138 mmol/L (136-145)
[2017-02-08 09:28] LABS: ANISOCYTOSIS PRESENT; BASO % 0.4 %; BASO ABS # 0.02 K/uL (0-0.2); COMPLETE YES; EOS % 1.8 %; IG% 2.4 %; LYMPH % 20.3 %; LYMPH ABS # 0.92 K/uL (1.2-3.4); MEAN PLATELET VOLUME 9.4 fL (7.4-10.4); MONO % 11.5 %; NEUT % 63.6 %; PLATELET COUNT 46 K/uL (130-400); POLYCHROMASIA 1+
== END ==
LOC: C.LABCC 08:27
PROVIDERS: ATTEND Internal Medicine
DX: D46.9 Myelodysplastic syndrome, unspecified (principal)